=== PATIENT | female | born 1990 | race Caucasian/White ===

== ENCOUNTER → 2017-10-02 10:54 | Outpatient (CLI) | payer OTHER, SELFPAY ==
--- NOTE | 2017-10-02 10:57 | US_ITS ---
US transvaginal HISTORY: Left lower quadrant pain ITS.REASON: Abdominal Pain ORDERING PHYSICIAN: Isaac Munoz MD PATIENT AGE: 27 years COMPARISON: None FINDINGS: The uterus and right ovary have been surgically removed. The vaginal cuff has an unremarkable appearance. The left ovary measures 5.6 x 4.3 x 3.2 cm containing multiple follicles. There is a 1.5 cm somewhat irregular appearing cyst and there is a small amount of fluid adjacent to the left ovary. Blood flow is present in the left ovary. The findings may represent a ruptured ovarian cyst. There is adjacent fluid-filled bowel. IMPRESSION: 1. Prior hysterectomy and right oophorectomy. 2. Mildly prominent left ovary with an irregular cyst and adjacent fluid suggesting a ruptured ovarian cyst
== END ==
PROVIDERS: Family Provider Physician Assistant; PCP Physician Assistant; Visit Provider Obstetrics & Gynecology
DX: R10.9 Unspecified abdominal pain (principal)
CPT/HCPCS: 76830

== ENCOUNTER → 2017-10-14 14:33 | Outpatient (CLI) | payer OTHER, SELFPAY ==
[2017-10-14 14:37] LABS: Microscopic, Urine URINE MICROSCOPIC (MICROSCOPIC)
[2017-10-14 15:04] LABS: Appearance,Urine CLEAR (Clear); Bilirubin,Urine Negative (Negative); Blood, Urine Negative (Negative); Color,Urine YELLOW (Yellow); Glucose,Urine (UA) Negative (Negative); Ketones,Urine Negative (Negative); Leukocyte Esterase,Urine Negative (Negative); Nitrate,Urine Negative (Negative); Protein,Urine Negative (Negative)
[2017-10-14 15:05] LABS: Basophils # 0.1 K/mm3 (0-0.2); Basophils % 0.9 % (0.1-2.0); Eosinophils # 0.1 K/mm3 (0.0-0.4); Eosinophils % 1.6 % (0.1-12.0); Hematocrit 38.2 % (37.0-47.0); Hemoglobin 12.9 g/dL (12.2-16.2); Lymphocytes # 2.8 K/mm3 (0.7-4.5); Lymphocytes % 31.5 K/mm3 (10-50); Mean Corpuscular HGB Conc 33.7 g/dL (31.8-35.4); Mean Corpuscular Hemoglobin 29.9 pg (27.0-31.2); Mean Corpuscular Volume 88.8 fl (81-99); Mean Platelet Volume 10.5 fl (7.4-10.4); Monocytes # 0.4 K/mm3 (0.1-1.0); Monocytes % 4.5 % (1.7-9.3); Neutrophils # 5.5 K/mm3 (1.8-7.8); Neutrophils % 61.5 % (37.0-80.0); Platelet Count 251 K/mm3 (142-424); Red Cell Distribution Width 13.4 % (11.5-17.5); White Blood Count 8.9 K/mm3 (4.8-10.8)
[2017-10-14 15:15] LABS: Bacteria,Urine Trace /lpf
[2017-10-14 15:43] LABS: HCG Qualitative, Serum Negative (Negative)
[2017-10-14 16:00] LABS: Alanine Aminotransferase 33 U/L (12-78); Albumin Level 3.9 gm/dL (3.4-5.0); Albumin/Globulin Ratio 1.1 (1.1-1.8); Alkaline Phosphatase 82 U/L (46-116); Anion Gap 13.3 mEq/L (5-15); Aspartate Amino Transferase 13 U/L (15-37); Bilirubin,Total 0.2 mg/dL (0.2-1.0); Blood Urea Nitrogen 10 mg/dL (7-18); Calcium 8.6 mg/dL (8.5-10.1); Carbon Dioxide 27 mmol/L (21.0-32.0); Chloride 103 mmol/L (98-107); Creatinine,Serum 0.68 mg/dL (0.55-1.02); Estimated Glomerular Filt Rate 104 ml/min (>60); GFR (African American) 126 ML/MIN (>60); Globulin 3.5 gm/dl (1.3-3.2); Glucose 93 mg/dL (74-106); Potassium 4.3 mmoL/L (3.5-5.1); Sodium 139 mmol/L (136-145); Total Protein,Serum 7.4 gm/dL (6.4-8.2)
== END ==
PROVIDERS: PCP Physician Assistant; Visit Provider Obstetrics & Gynecology
DX: R10.2 Pelvic and perineal pain (principal); Z01.818 Encounter for other preprocedural examination
CPT/HCPCS: 36415; 80053; 81001; 84703; 85025

== ENCOUNTER 2017-10-17 06:09 | Day surgery (SDC) | payer OTHER, SELFPAY ==
[2017-10-14 15:33] VITALS: BMI 28.5
[2017-10-17] VITALS (14 sets, daily range): BP systolic 112–154; BP diastolic 29–83; PULSE 60–81; RESP 15–18; TEMP 36.4–36.6; O2SAT 97–100
--- NOTE | 2017-10-17 07:13 | P.PN_ITS ---
[facility] Anesthesia Checklist - Structural Data Admitted From: Home Planned Operative Procedure/s: pelviscopy Consent for Planned Operative Procedure(s) Verified: Yes Verified Documents: Surgical Consent - Airway Assessment C-Spine Mobility Assessed: Yes TMJ Mobility Assessed: Yes Dentition: Good Dentition - Neurological Assessment Level of Consciousness: Awake, Alert - Anesthesia Plan Anesthesia Risk discussed: Yes Anesthesia Plan: Verified ASA Class: II Anesthesia Type: General [facility] Anesthesia HX I have reviewed the patient's past medical history: Yes Medical History: Denies:: Cancer (uterine cells), Diabetes Mellitus Type 1, Diabetes Mellitus Type 2, MRSA, Seizures Other Medical History: Reports: Other (ptuitary microadenoma). Denies: Blood Transfusion Reaction Other Surgeries: Yes: , Hysterectomy-Total (LAVH, RT SO), Tubal Ligation, Other (cone Bx Cx) Amputation: No Fractures: No *Family Hx:: Cancer, Diabetes, Coronary Artery Disease
--- NOTE | 2017-10-17 08:37 | HMH.OPNOTE ---
Date of procedure: 10/17/17 Pre-op Diagnosis:: Pelvic pain Post-op diagnosis:: other (1. Pelvic.2. Extensive pelvic adhesions.) Procedure performed:: Pelviscopic left salpingo-oophorectomy and extensive lysis of adhesions Surgeon:: Isaac Munoz MD SENIOR TECH MANUFA[employer]URING ENGINEERING:: Ja Arguelles Anesthesia: GETA Estimated blood loss (mL): 20 Operative findings:: Extensive pelvic adhesions with torsion of left adnexa Operative note:: After the patient was prepped and draped in usual fashion and general anesthesia was administered, a moist sponge stick was placed in the vagina for elevation of the vaginal cuff during the laparoscopy. After appropriate regloving, the skin on either side of the umbilicus was tented up with towel clips. A small incision was made in the base of the umbilicus with a knife, and a Veress needle was inserted into the abdominal cavity. After demonstration of negative pressure, and adequate phisoperitoneum was created with carbon dioxide gas. The Veress needle was then replaced with a trocar and cannula, using the [employer] system, and the trocar placed with the laparoscope. There were extensive omental adhesions from the anterior abdominal wall to the pelvis, and covering the pelvis. The uterus and right adnexa was surgically absent. The left adnexa could initially not be visualized due to the adhesions. The upper abdomen was explored and found to be normal. The liver and spleen edges and gallbladder were visualized and felt to be normal. The appendix was not seen. Returning to the pelvis, after transillumination and under direct visualization, accessory ports were placed in the right and left lower quadrants. Using a combination of endo-Babcocks and EndoShears, the omental adhesions were taken down from the anterior abdominal wall, thus freeing up the pelvis. The extensive adhesions covering the right side of the pelvis were freed up hemostatically. On the left side, the adhesions were more extensive and, after painstaking adhesiolysis, the left adnexa was finally able to be visualized and found to be twisted due to adhesions. It was grasped with a [place] clamp, and the adhesions were dissected away. The infundibulopelvic ligament was then crossclamped and stapled with an Endo BONG stapler, thus freeing the left adnexa. There was no undue bleeding. The pelvis was inspected for any other pathology, and none was found. An Endo Catch basket was placed to the left lower quadrant port, and the specimen was placed within it and brought out through that port. The fascial peritoneum was then reduced, and the instruments removed under direct visualization. The skin incisions were infused with a dilute solution of Marcaine, as a local anesthetic, and closed with subcuticular sutures of 3-0 Vicryl. The wounds were appropriately dressed. The sponge stick was removed from the vagina. The estimated blood loss was 20 cc. The patient tolerated the procedure well, and was taken to PACU in excellent condition. She will be given Delestrogen 30 mg IM in PACU, and will be discharged today, if her vital signs are stable. Condition: stable Disposition: same day Specimens:: Left tube and ovary Complications:: None
--- NOTE | 2017-10-17 08:43 | P.OP_ITS ---
Date of procedure: 10/17/17 Pre-op Diagnosis:: Pelvic pain Post-op diagnosis:: other (1. Pelvic.2. Extensive pelvic adhesions.) Procedure performed:: Pelviscopic left salpingo-oophorectomy and extensive lysis of adhesions Surgeon:: Isaac Munoz MD PACKAGER HAND:: Ja Arguelles Anesthesia: GETA Estimated blood loss (mL): 20 Operative findings:: Extensive pelvic adhesions with torsion of left adnexa Operative note:: After the patient was prepped and draped in usual fashion and general anesthesia was administered, a moist sponge stick was placed in the vagina for elevation of the vaginal cuff during the laparoscopy. After appropriate regloving, the skin on either side of the umbilicus was tented up with towel clips. A small incision was made in the base of the umbilicus with a knife, and a Veress needle was inserted into the abdominal cavity. After demonstration of negative pressure, and adequate phisoperitoneum was created with carbon dioxide gas. The Veress needle was then replaced with a trocar and cannula, using the [employer] system, and the trocar placed with the laparoscope. There were extensive omental adhesions from the anterior abdominal wall to the pelvis, and covering the pelvis. The uterus and right adnexa was surgically absent. The left adnexa could initially not be visualized due to the adhesions. The upper abdomen was explored and found to be normal. The liver and spleen edges and gallbladder were visualized and felt to be normal. The appendix was not seen. Returning to the pelvis, after transillumination and under direct visualization, accessory ports were placed in the right and left lower quadrants. Using a combination of endo-Babcocks and EndoShears, the omental adhesions were taken down from the anterior abdominal wall, thus freeing up the pelvis. The extensive adhesions covering the right side of the pelvis were freed up hemostatically. On the left side, the adhesions were more extensive and, after painstaking adhesiolysis, the left adnexa was finally able to be visualized and found to be twisted due to adhesions. It was grasped with a Harris clamp, and the adhesions were dissected away. The infundibulopelvic ligament was then crossclamped and stapled with an Endo BONG stapler, thus freeing the left adnexa. There was no undue bleeding. The pelvis was inspected for any other pathology, and none was found. An Endo Catch basket was placed to the left lower quadrant port, and the specimen was placed within it and brought out through that port. The fascial peritoneum was then reduced, and the instruments removed under direct visualization. The skin incisions were infused with a dilute solution of Marcaine, as a local anesthetic, and closed with subcuticular sutures of 3-0 Vicryl. The wounds were appropriately dressed. The sponge stick was removed from the vagina. The estimated blood loss was 20 cc. The patient tolerated the procedure well, and was taken to PACU in excellent condition. She will be given Delestrogen 30 mg IM in PACU, and will be discharged today, if her vital signs are stable. Condition: stable Disposition: same day Specimens:: Left tube and ovary Complications:: None
--- NOTE | 2017-10-17 08:50 | P.PN_ITS ---
[facility] Anesthesia Record Part I Intake, IV Amount: 900 Estimated blood loss (mL): 25 Urine output (mL): 25 Blood Products used (#): none Blood Pressure: 134/48 SaO2: 97 Pulse Rate: 79 Respiratory Rate: 15 Temperature: 97.7 F Patient is:: Drowsy Stable to PACU at:: 08:46
--- NOTE | 2017-10-17 08:50 | HMH.ANESII ---
[facility] Anesthesia Record Part II Discharge Time: 09:16 Destination: Surgical Day Care (OP Surgery) PACU nurse assessment reviewed?: Yes Patient Condition:: Good Anesthesia Complications:: None
[2017-10-17 10:04] LABS: Hematocrit 33.6 % (37.0-47.0)
--- NOTE | 2017-10-17 15:22 | PC.NURSE ---
1000-spoke with lakeisha at Dr Aguirre office asked if pt was to have observations per order sheet. dr skinner comfirmed pt can go home. hgb-12 hct-33.6 1045-called Carla office to get okay on bloodwork results, Dr skinner okay to dc'd pt
== END 2017-10-17 11:10 | disposition home or self-care (01) ==
LOC: OR 06:10
PROVIDERS: Family Provider Physician Assistant; PCP Physician Assistant; Visit Provider Obstetrics & Gynecology
PROC: 0WJJ4ZZ Inspection of Pelvic Cavity, Percutaneous Endoscopic Approach (ICD-10-PCS; CPT 58661; principal; 2017-10-17 07:30)
DX: R10.2 Pelvic and perineal pain (principal); N83.53 Torsion of ovary, ovarian pedicle and fallopian tube; N73.6 Female pelvic peritoneal adhesions (postinfective); Z72.0 Tobacco use
CPT/HCPCS: 58661; 49329; 85014; 85018; 96372; 96374; J0131; J2405

== ENCOUNTER 2017-10-18 21:31 | Observation (INO) | payer OTHER, SELFPAY ==
[2017-10-18 21:27] VITALS: BP 139/72; PULSE 102; RESP 20; TEMP 36.8; O2SAT 100; BMI 29.6
[2017-10-18 21:55] LABS: Basophils # 0.1 K/mm3 (0-0.2); Basophils % 0.5 % (0.1-2.0); Eosinophils # 0.2 K/mm3 (0.0-0.4); Eosinophils % 1.5 % (0.1-12.0); Hemoglobin 9.4 g/dL (12.2-16.2); Lymphocytes # 4.1 K/mm3 (0.7-4.5); Lymphocytes % 33.2 K/mm3 (10-50); Mean Corpuscular HGB Conc 35.1 g/dL (31.8-35.4); Mean Corpuscular Hemoglobin 30.7 pg (27.0-31.2); Mean Corpuscular Volume 87.6 fl (81-99); Mean Platelet Volume 11.3 fl (7.4-10.4); Monocytes # 0.5 K/mm3 (0.1-1.0); Monocytes % 4.4 % (1.7-9.3); Neutrophils # 7.4 K/mm3 (1.8-7.8); Neutrophils % 60.5 % (37.0-80.0); Platelet Count 257 K/mm3 (142-424); Red Blood Count 3.06 M/mm3 (4.20-5.40); Red Cell Distribution Width 13.7 % (11.5-17.5); White Blood Count 12.3 K/mm3 (4.8-10.8)
[2017-10-18 21:57] LABS: Hematocrit 26.8 % (37.0-47.0)
--- NOTE | 2017-10-18 22:00 | HMH.EDGENADL ---
ED Disposition Clinical Impression: Postoperative abdominal pain, Hemoperitoneum, Acute urinary retention Disposition: Still a Patient Condition on Discharge: Fair Instructions: DI for Acute Abdomen Referrals: Amy Matute PA [Primary Care Provider] - - Critical Care Critical Care Time: No Attestation: On 10/18/17, the high probability of a clinically significant, sudden or life threatening deterioration of the following system(s) required my full and direct attention, intervention and personal management. The time I documented below is in addition to time spent performing reported procedures but includes the following listed in this critical care notation. Medical Decision Making Vital Signs: 10/18/17 21:27 Temperature 98.3 F Temperature Source Oral Pulse Rate [Right Brachial] 102 H Respiratory Rate 20 Blood Pressure [Right Arm] 139/72 Blood Pressure Mean [Right Arm] 94 Blood Pressure Source [Right Arm] Automatic Cuff Blood Pressure Position [Right Arm] Supine 02 Sat by Pulse Oximetry 100 Oxygen Delivery Method Nasal Cannula Oxygen Flow Rate (LPM) 2 - Lab Data Lab Results 10/18/17 21:47: WBC 12.3 H, RBC 3.06 L, Hgb 9.4 L, Hct 26.8 L, MCV 87.6, MCH 30.7, MCHC 35.1, RDW 13.7, Plt Count 257, MPV 11.3 H, Neut % (Auto) 60.5, Lymph % (Auto) 33.2, [place]ook[place] % (Auto) 4.4, Eos % (Auto) 1.5, Baso % (Auto) 0.5, Neut # (Auto) 7.4, Lymph # (Auto) 4.1, [place]ook[place] # (Auto) 0.5, Eos # (Auto) 0.2, Baso # (Auto) 0.1 10/18/17 21:47: Sodium 138, Potassium 3.9, Chloride 105, Carbon Dioxide 22, Anion Gap 14.9, BUN 10, Creatinine 0.69, Estimated Creat Clear 166, Estimated GFR 102, Est GFR ( Amer) 123, Glucose 86, Calcium 7.8 L, Total Bilirubin 0.4, AST 19, ALT 29, Alkaline Phosphatase 68, Total Protein 6.8, Albumin 3.3 L, Globulin 3.5 H, Albumin/Globulin Ratio 0.9 L 10/18/17 22:35: Blood Type O Positive, Antibody Screen Negative, Crossmatch (AHG) See Detail 10/18/17 23:41: Urine Color Yellow, Urine Appearance Clear, Urine pH 7.0, Ur Specific [place] 1.010, Urine Protein Negative, Urine Glucose (UA) Negative, Urine Ketones Negative, Urine Blood Negative, Urine Nitrate Negative, Urine Bilirubin Negative, Urine Urobilinogen 0.2, Ur Leukocyte Esterase Negative, Urine WBC Occasional, Ur Squamous Epith Cells Occasional Result diagrams: 10/18/17 21:47 10/18/17 21:47 Orders (Tests/Meds): ED MEDICATIONS Generic Name Dose Route Start Last Admin Trade Name Freq PRN Reason Stop Dose Admin Sodium Chloride 250 mls @ 25 mls/hr 10/18/17 22:15 Sod Chlor 0.9% 250ml Bag IV 10/19/17 22:14 .Q10H PERFECTO Discontinued Medications Generic Name Dose Route Start Last Admin Trade Name Freq PRN Reason Stop Dose Admin Iopamidol 70 ml 10/18/17 23:45 10/18/17 23:47 [id number]; 75ml Vial IV 10/18/17 23:46 70 ml ONCE ONE Administration Morphine Sulfate 4 mg 10/18/17 22:11 10/18/17 22:17 Morphine 4mg/Ml Syringe IV 10/18/17 22:12 4 mg ONCE ONE Administration Morphine Sulfate 4 mg 10/18/17 23:36 10/18/17 23:45 Morphine 4mg/Ml Syringe IV 10/18/17 23:37 4 mg ONCE ONE Administration Ondansetron HCl 4 mg 10/18/17 22:11 10/18/17 22:17 Zofran 4mg/2ml Vial IV 10/18/17 22:12 4 mg ONCE ONE Administration Sodium Chloride 1,000 ml 10/18/17 22:18 10/18/17 23:45 Sod Chlor 0.9% 1000ml Bag IV 10/18/17 22:19 1,000 ml BOLUS ONE Administration Sodium Chloride 10 ml 10/18/17 23:45 10/18/17 23:47 Rad-Saline Flush 10ml Syringe IV 10/18/17 23:46 10 ml ONCE ONE Administration ORDERS Category Date Time Status PRBC [Red Blood Cells] Stat K 10/18/17 22:35 Results Type and Screen Stat [facility] 10/18/17 22:[address] abdomen pelvis w con Stat Cat Scan 10/18/17 22:17 Taken Hemoglobin and Hematocrit Routine Lab 10/19/17 02:17 Ordered PT/PTT Stat Lab 10/18/17 22:19 Ordered - CT Data CT Scan: Abdomen, Pelvis Time Received: 23:[address] Reviewed: Yes: I have viewe
[2017-10-18 22:06] LABS: Alanine Aminotransferase 29 U/L (12-78); Albumin Level 3.3 gm/dL (3.4-5.0); Albumin/Globulin Ratio 0.9 (1.1-1.8); Alkaline Phosphatase 68 U/L (46-116); Anion Gap 14.9 mEq/L (5-15); Aspartate Amino Transferase 19 U/L (15-37); Bilirubin,Total 0.4 mg/dL (0.2-1.0); Blood Urea Nitrogen 10 mg/dL (7-18); Calcium 7.8 mg/dL (8.5-10.1); Carbon Dioxide 22 mmol/L (21.0-32.0); Chloride 105 mmol/L (98-107); Creatinine Clearance Estimated 166 mL/min (0-300); Creatinine,Serum 0.69 mg/dL (0.55-1.02); Estimated Glomerular Filt Rate 102 ml/min (>60); GFR (African American) 123 ML/MIN (>60); Globulin 3.5 gm/dl (1.3-3.2); Glucose 86 mg/dL (74-106); Potassium 3.9 mmoL/L (3.5-5.1); Sodium 138 mmol/L (136-145); Total Protein,Serum 6.8 gm/dL (6.4-8.2)
--- NOTE | 2017-10-18 22:17 | CT_ITS ---
CT abdomen pelvis w con COMPARISON: CT scan abdomen pelvis 06/05/2017 HISTORY: 2 days post oophorectomy with abdominal distention and pain TECHNIQUE: Multiple axial scans obtained from hemidiaphragms to the pelvic floor and were performed with IV contrast only. Sagittal coronal reformats were evaluated as well. FINDINGS: The lower lung centeno are clear except for minimal atelectasis at the right posterior gutter. There is no pleural fluid. There is a tiny amount of air beneath right hemidiaphragm and superior to the right lobe of the liver consistent with recent laparoscopic surgery. Liver spleen stomach pancreas and gallbladder appear grossly normal. The adrenal glands are normal. The kidneys are normal size and show symmetrical function both appearing normal. There are postsurgical changes near the umbilicus likely due to the laparoscopic port entry. Small bowel is grossly normal. I do not definitely identify the appendix but there are no definite findings to suggest appendicitis. There are small amount of somewhat high density ascitic fluid in the right posterior gutter near the cecum. There is a moderate amount of fluid within the lower pelvis of higher CT number than urinary bladder consistent with hemoperitoneum. There may be suture material near the left adnexa and possibly right adnexa. Urinary bladder is well distended with urine.. IMPRESSION: Postsurgical changes about the umbilicus, tiny amount of free air beneath right hemidiaphragm and moderate amount of fluid within the pelvis in this patient post unilateral and/or possibly bilateral oophorectomy with fluid in the pelvis having CT number consistent with blood products and likely due to hemoperitoneum. I basically agree with the [facility] report.
--- NOTE | 2017-10-18 22:26 | PC.NURSE ---
PT TO CT
--- NOTE | 2017-10-18 22:28 | PC.NURSE ---
IV LINE PER EMS
[2017-10-18 23:51] LABS: Microscopic, Urine URINE MICROSCOPIC (MICROSCOPIC)
[2017-10-18 23:53] LABS: Appearance,Urine CLEAR (Clear); Bilirubin,Urine Negative (Negative); Blood, Urine Negative (Negative); Color,Urine YELLOW (Yellow); Glucose,Urine (UA) Negative (Negative); Ketones,Urine Negative (Negative); Leukocyte Esterase,Urine Negative (Negative); Nitrate,Urine Negative (Negative); Protein,Urine Negative (Negative); Urobilinogen,Urine 0.2 EU/dl (0.2)
[2017-10-18 23:56] LABS: Squamous Epithelial Cell,Urine Occasional #/hpf (0-5); WBC,Urine Occasional #/hpf (0-3)
[2017-10-19] VITALS (22 sets, daily range): BP systolic 86–151; BP diastolic 46–94; PULSE 63–93; RESP 16–18; TEMP 36.3–37; O2SAT 96–100; BMI 29.6
[2017-10-19 01:09] LABS: Activated Partial Thrombo Time 26.1 seconds (23.6-34.0); INR 0.94 (0.9-1.1); Prothrombin Time 10.2 seconds (9.4-11.8)
--- NOTE | 2017-10-19 01:20 | PC.NURSE ---
report recieved from Jaylene RN, pt arrived to floor via stretcher. pt remains stable
--- NOTE | 2017-10-19 05:22 | PC.NURSE ---
pt remains stable at this time, resting comfortable without discomfort. VSS, no needs voiced
[2017-10-19 06:45] LABS: Basophils % 0.4 % (0.1-2.0); Eosinophils # 0.1 K/mm3 (0.0-0.4); Eosinophils % 1.4 % (0.1-12.0); Lymphocytes # 3.4 K/mm3 (0.7-4.5); Lymphocytes % 34.6 K/mm3 (10-50); Mean Corpuscular HGB Conc 33.9 g/dL (31.8-35.4); Mean Corpuscular Hemoglobin 30.7 pg (27.0-31.2); Mean Corpuscular Volume 90.3 fl (81-99); Mean Platelet Volume 10.3 fl (7.4-10.4); Monocytes # 0.5 K/mm3 (0.1-1.0); Monocytes % 5.1 % (1.7-9.3); Neutrophils # 5.7 K/mm3 (1.8-7.8); Neutrophils % 58.5 % (37.0-80.0); Platelet Count 185 K/mm3 (142-424); Red Blood Count 2.59 M/mm3 (4.20-5.40); Red Cell Distribution Width 13.5 % (11.5-17.5); White Blood Count 9.8 K/mm3 (4.8-10.8)
[2017-10-19 06:58] LABS: Hematocrit 23.4 % (37.0-47.0); Hemoglobin 7.9 g/dL (12.2-16.2)
--- NOTE | 2017-10-19 07:01 | PC.NURSE ---
reported critical lab to Dr. Zamudio, report given on current pt status, new order for ducolax suppository
--- NOTE | 2017-10-19 07:05 | PC.NURSE ---
RECEIVED REPORT FROM Swati HERRERA RN
--- NOTE | 2017-10-19 07:38 | PC.NURSE ---
PT HAS 3 LAP SITES WITH SUTURES INTACT. ALL 3 INCISIONS APPROXIMATED. SOME MILD BRUSING NOTED TO LAP SITES.
--- NOTE | 2017-10-19 07:38 | PC.NURSE ---
PT REPORTS NOT HAVING A BM SINCE PRIOR TO SX. PT DECLINES PASSING ANY GAS. WILL CONTINUE TO MONITOR.
--- NOTE | 2017-10-19 08:00 | PC.NURSE ---
DR MUNSON CALLED REPORT GIVEN. PT WANTING SOMETHING FOR ABD PAIN AND HEADACHE. PT REPORTING PAIN 7 OUT OF 10. PT ABD MODERATELY DISTENDED. VITALS 99/56 HR 66 O2 99% REP 16 TEMP 97.9 ORAL. ORDERS RECEIVED TO OBTAIN ORTHOSTATIC BP AND MD WOULD BE OVER TO EVALUATE PT. ORDERS R/V.
--- NOTE | 2017-10-19 08:28 | PC.NURSE ---
DR MUNSON AT BEDSIDE. REPORTED ON ORTHOSTATIC BP SITTING 133/94 HR 70, LAYING 124/56 HR 83, STANDING 151/73 HR 93. PT STILL REQUESTING SOMETHIGN FOR PAIN. RATING PAIN A 7. ABD AND HEAD. ORDERS RECEIVED XRAY KUB ACUTE ABD SERIES FOR ABD PAIN. PT MAY HAVE ICE CHIPS. NOTIFIED THAT PT HAS MORPHINE 4MG ORDERED. ORDERS RECEIVED TO GIVE MORPHINE 2MG IV. REPEAT CBC AT 10:00AM THIS MORNING. R/V
--- NOTE | 2017-10-19 08:48 | HMH.HP ---
*Admission Date: 10/19/17 *Chief complaint: Abdominal pain, postoperative *History of present illness: Patient is a 27yo female who is s/p laparoscopic salpingoophorectomy on . She was discharged home same day with pain medications. She experienced abdominal pain that was not controlled by the pain medications she was sent home with. She then exchanged her prescription on Saturday for Dilaudid po. On Saturday she took the Dilaudid x 2, hours apart. Per her partner, after taking the second tablet, she was noted to be short of breath, complaining of continued pain, and very drowsy. He then called 911 and she was transported to the ER via ambulance. In the ER, her Hct was noted to have decreased since her discharge and a CT was performed. Her CT showed moderate amount of fluid in the pelvis, a significant stool burden and air. Patient was admitted for observation, pain control, serial abdominal exams and serial Hct's. She was given IVH and kept NPO overnight. Her repeat Hct this am had decreased slightly to 23. This am, she complains again of pain. She has not passed gas since yesterday. She has not had a bowel movement since before the surgery. She is requesting to eat and go home. In May Patient had a hysterectomy with unilateral salpingoophorectomy that was complicated by intraabdominal bleeding that required a second emergency surgery. [facility] History I have reviewed the patient's past medical history: Yes Medical History: Denies:: Seizures Other Medical History: Reports: Other (ptuitary microadenoma). Denies: Blood Transfusion Reaction Other Surgeries: Yes: , Hysterectomy-Total (LAVH, RT SO), Tubal Ligation, Other (cone Bx Cx) Amputation: No Fractures: No - *Social History Educational Level: Completed High School Smoking Status: Current every day smoker Tobacco Type: cigarettes # Packs/Day (cigarettes): 2 Alcohol Intake: never Substance Use Type: denies use Occupational Status: employed Housing: house Household Members: spouse, children - Psychiatric History Expresses thoughts of harming self/others: None Suicide Plan Description: No Plan *Family Hx:: No significant family history, Cancer, Coronary Artery Disease, Diabetes [employer] history: Non-contributory Para: 3 Review of Systems - Review of Systems Review of systems:: other, pertinent systems reviewed and negative unless documented below Meds Home Medications Medication Instructions Recorded Confirmed Type Hydromorphone HCl [Hydromorphone 4 mg PO NEEDED PRN 10/18/17 10/18/17 History 4mg Tab] Allergies Allergy/AdvReac Type Severity Reaction Status Date / Time No Known Allergies Allergy Unverified 10/14/17 13:58 Exam Vital signs and Labs for Last 24 Hours: Temp Pulse Resp BP Pulse Ox 98.6 F 79 18 125/79 100 10/19/17 01:53 10/19/17 01:53 10/19/17 01:53 10/19/17 01:53 10/19/17 01:51 Laboratory Results - last 24 hr 10/19/17 06:03: WBC 9.8, RBC 2.59 L, Hgb 7.9 L*, Hct 23.4 L*, MCV 90.3, MCH 30.7, MCHC 33.9, RDW 13.5, Plt Count 185 D, MPV 10.3, Neut % (Auto) 58.5, Lymph % (Auto) 34.6, [place] % (Auto) 5.1, Eos % (Auto) 1.4, Baso % (Auto) 0.4, Neut # (Auto) 5.7, Lymph # (Auto) 3.4, [place] # (Auto) 0.5, Eos # (Auto) 0.1, Baso # (Auto) 0.0 I & O for Last 24 hours: Intake & Output 10/16/17 10/17/17 10/18/17 10/19/17 23:59 23:59 23:59 23:59 Output Total 100 / 900 Balance -100 / -600 - Constitutional mild distress - *Routine Respiratory Exam Present: CTA bilaterally Comments: CTAB - *Routine Abdominal Exam Present: normoactive bowel sounds, distended Comments: mildly tender, able to distract, no rebound, no guarding H&P: Result - Labs Labs: Short CBC 10/19/17 Range/Units 06:03 WBC 9.8 (4.8-10.8) K/mm3 Hgb 7.9 L* (12.2-16.2) g/dL Hct 23.4 L* (37.0-47.0) % Plt Count 185 D (142-424) K/mm3 Assessment and Plan (1) Hemoperitoneum Start date:
--- NOTE | 2017-10-19 09:08 | PC.NURSE ---
PT HAD A BISACODYL SUPPOSITORY AT 8:42. PT REPORTS SHE THINKS HER BOWELS NEED TO MOVE. PT ASSISTED TO BATHROOM, PT CONSTIPATED. PT WAS ABLE TO HAVE SMALL BOWEL MOVEMENT, BM WAS FORMED LOOKING AND PEA SIZED.
--- NOTE | 2017-10-19 09:08 | XR_ITS ---
XR KUB COMPARISON: CT scan abdomen pelvis 10/18/2017 HISTORY: Postop abdominal pain TECHNIQUE: KUB FINDINGS: There is large amount stool in ascending transverse and proximal descending colon. There are a few mildly dilated loops of small bowel lower midabdomen. Is a White catheter seen in the collapsed urinary bladder. There are faint surgical kait on both sides of the lower pelvis. IMPRESSION: Findings of mild to moderate constipation, no obvious remaining free air seen in the abdomen at this time.
--- NOTE | 2017-10-19 09:17 | P.HP_ITS ---
*Admission Date: 10/19/17 *Chief complaint: Abdominal pain, postoperative *History of present illness: Patient is a 27yo female who is s/p laparoscopic salpingoophorectomy on . She was discharged home same day with pain medications. She experienced abdominal pain that was not controlled by the pain medications she was sent home with. She then exchanged her prescription on Saturday for Dilaudid po. On Saturday she took the Dilaudid x 2, hours apart. Per her partner, after taking the second tablet, she was noted to be short of breath, complaining of continued pain, and very drowsy. He then called 911 and she was transported to the ER via ambulance. In the ER, her Hct was noted to have decreased since her discharge and a CT was performed. Her CT showed moderate amount of fluid in the pelvis, a significant stool burden and air. Patient was admitted for observation, pain control, serial abdominal exams and serial Hct's. She was given IVH and kept NPO overnight. Her repeat Hct this am had decreased slightly to 23. This am, she complains again of pain. She has not passed gas since yesterday. She has not had a bowel movement since before the surgery. She is requesting to eat and go home. In May Patient had a hysterectomy with unilateral salpingoophorectomy that was complicated by intraabdominal bleeding that required a second emergency surgery. [facility] History I have reviewed the patient's past medical history: Yes Medical History: Denies:: Seizures Other Medical History: Reports: Other (ptuitary microadenoma). Denies: Blood Transfusion Reaction Other Surgeries: Yes: , Hysterectomy-Total (LAVH, RT SO), Tubal Ligation, Other (cone Bx Cx) Amputation: No Fractures: No - *Social History Educational Level: Completed High School Smoking Status: Current every day smoker Tobacco Type: cigarettes # Packs/Day (cigarettes): 2 Alcohol Intake: never Substance Use Type: denies use Occupational Status: employed Housing: house Household Members: spouse, children - Psychiatric History Expresses thoughts of harming self/others: None Suicide Plan Description: No Plan *Family Hx:: No significant family history, Cancer, Coronary Artery Disease, Diabetes 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 Para: 3 Review of Systems - Review of Systems Review of systems:: other, pertinent systems reviewed and negative unless documented below Meds Home Medications Medication Instructions Recorded Confirmed Type Hydromorphone HCl [Hydromorphone 4 mg PO NEEDED PRN 10/18/17 10/18/17 History 4mg Tab] Allergies Allergy/AdvReac Type Severity Reaction Status Date / Time No Known Allergies Allergy Unverified 10/14/17 13:58 Exam Vital signs and Labs for Last 24 Hours: Temp Pulse Resp BP Pulse Ox 98.6 F 79 18 125/79 100 10/19/17 01:53 10/19/17 01:53 10/19/17 01:53 10/19/17 01:53 10/19/17 01:51 Laboratory Results - last 24 hr 10/19/17 06:03: WBC 9.8, RBC 2.59 L, Hgb 7.9 L*, Hct 23.4 L*, MCV 90.3, MCH 30.7 , MCHC 33.9, RDW 13.5, Plt Count 185 D, MPV 10.3, Neut % (Auto) 58.5, Lymph % ( Auto) 34.6, [place] % (Auto) 5.1, Eos % (Auto) 1.4, Baso % (Auto) 0.4, Neut # (Auto ) 5.7, Lymph # (Auto) 3.4, [place] # (Auto) 0.5, Eos # (Auto) 0.1, Baso # (Auto) 0.0 I & O for Last 24 hours: Intake & Output 10/16/17 10/17/17 10/18/17 10/19/17 23:59 23:59 23:59 23:59 Output Total 100 / 900 Balance -100 / -600
--- NOTE | 2017-10-19 09:30 | PC.NURSE ---
Addendum entered by Ellie Almeida RN 10/19/17 14:56: TIME WAS AT 09:08 Original Note: PT HAD A SMALL BM. BM FORMED AND HARD, SMALL PEA SIZED
--- NOTE | 2017-10-19 09:35 | PC.NURSE ---
RADIOLOGY AT BEDSIDE TO TAKE PT FOR X-RAY. REPORT GIVEN TO RADIOLOGY.
--- NOTE | 2017-10-19 09:52 | PC.NURSE ---
PT RETURNED FROM RADIOLOGY AT THIS TIME. PT REPORTING ABD PAIN WHEN SHE HAD TO LAY FLAT FOR X-RAY. PT ASSISTED BACK TO BED. PT RATED PAIN IN ABD A 4. INSTRUCTED PT THAT IT WASN'T TIME FOR PAIN MEDICATION AT THIS TIME. I WOULD GIVE HER A FEW MINUTES FOR HER TO RELAX IN BED AND IF PAIN WAS NOT ANY BETTER WOULD CALL MD BACK. PT V/U.
--- NOTE | 2017-10-19 10:19 | PC.NURSE ---
DR MUNSON CALLED XRAY REPORT FINDINGS AND IMPRESSION REPORTED TO MD. NO NEW ORDERS RECEIVED AT THIS TIME.
--- NOTE | 2017-10-19 10:20 | PC.NURSE ---
LAB AT BEDSIDE FOR SCHEDULED LABS.
[2017-10-19 10:33] LABS: Basophils % 0.5 % (0.1-2.0); Eosinophils # 0.1 K/mm3 (0.0-0.4); Eosinophils % 1.9 % (0.1-12.0); Lymphocytes # 2.7 K/mm3 (0.7-4.5); Lymphocytes % 37.5 K/mm3 (10-50); Mean Corpuscular HGB Conc 33.7 g/dL (31.8-35.4); Mean Corpuscular Hemoglobin 30.4 pg (27.0-31.2); Mean Corpuscular Volume 90.2 fl (81-99); Mean Platelet Volume 11.5 fl (7.4-10.4); Monocytes # 0.4 K/mm3 (0.1-1.0); Monocytes % 5.8 % (1.7-9.3); Neutrophils # 3.9 K/mm3 (1.8-7.8); Neutrophils % 54.2 % (37.0-80.0); Platelet Count 170 K/mm3 (142-424); Red Blood Count 2.64 M/mm3 (4.20-5.40); Red Cell Distribution Width 13.5 % (11.5-17.5); White Blood Count 7.3 K/mm3 (4.8-10.8)
--- NOTE | 2017-10-19 10:35 | PC.NURSE ---
PT RESTING QUIETLY IN BED. RESP EASY AND UNLABORED. CALL LIGHT IN REACH.
[2017-10-19 10:38] LABS: Hematocrit 23.8 % (37.0-47.0)
--- NOTE | 2017-10-19 10:38 | PC.NURSE ---
LAB CALLED WITH CRITICAL H/H 8.0/23.8. WILL NOTIFY
--- NOTE | 2017-10-19 10:41 | PC.NURSE ---
DR MUNSON CALLED CRITICAL H/H REPORTED 8.0/23.8. ORDERS RECEIVED TO (1) REMOVE BROTHERS CATHETER. (2) HAVE PT WALK LAPS IN HALLWAY. (3) PT MAY HAVE CLEAR FLUIDS. HAVE PT DRINK WARM FLUIDS. (4) GIVE 1/3 DOSE OF MAG CITRATE PO X1. HOLD OFF ON PAIN MEDICATIONS AT THIS TIME. R/V
--- NOTE | 2017-10-19 11:05 | PC.NURSE ---
PT SITTING UP IN BED, BROTHERS CATHETER REMOVED. PT TOLERATED WELL. PT ASSISTED TO BSC WITHOUT DIFFICULTY.
--- NOTE | 2017-10-19 11:26 | PC.NURSE ---
DR MUNSON IN DEPARTMENT. REPORT GIVEN PT HAS HAD A HEADACHE OFF AND ON. CAN WE GIVE PT TYLENOL IF NEEDED. ORDERS RECEIVED FOR TYLENOL 1000MG PO Q6 HOURS PRN HEADACHE. R/V
--- NOTE | 2017-10-19 11:30 | PC.NURSE ---
PT RESTING IN BED WATCHING TV. NO NEEDS VOICED. CALL LIGHT IN REACH,.
--- NOTE | 2017-10-19 12:30 | PC.NURSE ---
ENCOURAGED PT TO TAKE A WALK AROUND OB UNIT. RN WALKED BESIDE PT. PT TOLERATED WELL. PT REPORTS HAVING A HEADACHE AND REQUESTING TYLENOL. SEE MAR FOR MEDICATION DOCUMENTATION. NO OTHER NEEDS VOICED.
--- NOTE | 2017-10-19 13:15 | HMH.PHAVTE ---
[facility] Pharmacy VTE Monitoring - Patient Demographics Admission date: 10/19/17 Report Date: 10/19/17 Time: 13:15 Allergies/Adverse Reactions: Patient Allergies No Known Allergies Allergy (Unverified 10/14/17 13:58) Height: 1.7 m Weight: 85.729 kg Patient Problems: Current Active Problems Postoperative abdominal pain (Acute) Hemoperitoneum (Acute) Acute urinary retention (Acute) - VTE Risk Labs: VTE Related Lab Results Hgb 8.0 g/dL (12.2-16.2) L 10/19/17 10:25 Hct 23.8 % (37.0-47.0) L* 10/19/17 10:25 Plt Count 170 K/mm3 (142-424) 10/19/17 10:25 PT 10.2 seconds (9.4-11.8) 10/18/17 21:47 INR 0.94 (0.9-1.1) 10/18/17 21:47 APTT 26.1 seconds (23.6-34.0) 10/18/17 21:47 BUN 10 mg/dL (7-18) 10/18/17 21:47 Creatinine 0.69 mg/dL (0.55-1.02) 10/18/17 21:47 Estimated Creat Clear 166 mL/min (0-300) 10/18/17 21:47 - Prophylaxis VTE Prophylaxis Ordered?: Yes Types of VTE Prophylaxis: TEDS Knee High Location of Applied Device: Bilateral Lower Extremeties - VTE Diagnosis Confirmed Treatment or plan recommended: Continue Current Treatment
--- NOTE | 2017-10-19 13:19 | PC.NURSE ---
PT SLEEPING, RESP EASY AND UNLABORED. CALL LIGHT IN REACH.
--- NOTE | 2017-10-19 14:00 | PC.NURSE ---
PT HAS HAD 3 SCANT BOWEL MOVEMENTS SINCE 12PM. ALL BOWEL MOVEMENTS MUCCUS LOOKING
--- NOTE | 2017-10-19 14:20 | PC.NURSE ---
PT WALKED A LAP AROUND OB UNIT WITH RN. PT TOLERATED WELL. PT ASSISTED BACK TO BED. PT DENIES ANY HEADACHE OR PAIN AT THIS TIME. PT REQUESTING TV REMOTE AND CUP OF COFFEE. CALL LIGHT IN REACH. NO OTHER NEEDS VOICED.
--- NOTE | 2017-10-19 15:28 | PC.NURSE ---
PT SLEEPING, RESP EASY AND UNLABORED. CALL LIGHT IN REACH. WILL CONTINUE TO MONITOR.
--- NOTE | 2017-10-19 16:45 | PC.NURSE ---
PT SITTING UP IN BED AT THIS TIME. PT LUNG SOUNDS CLEAR. RESP EASY AND UNLABORED. PT BOWEL SOUNDS NORMAL IN ALL 4 QUADS. PT VOIDING WITHOUT DIFFICULTY. PT HAS HAD 4 SCANT BM ALL MUCUS LOOKING. PT ABD STILL MODERATELY DISTENDED. PT HAS 3 ABD LAP SITES. UMBILICUS LAP SITE DRAINING A SMALL AMOUNT OF BLOOD. PT REPORTS HEADACHE RATING PAIN 7. PT STATES ABD NOT HURTING AT THIS TIME. PT HAS ARTIE CALOS HOSE INPLACE. PT HAS WALKED A COUPLE OF LAPS IN HALLWAY WITH NURSE. PT REFUSED TO WALK AROUNDS UNIT OR SIT UP IN A CHAIR AT THIS TIME. NO EDEMA NOTED. PT DENIES ANY CHEST PAIN. CALL LIGHT IN REACH. WILL UPDATE MD ON PT'S STATUS AND ADDRESS HEADACHE. NO OTHER NEEDS VOICED.
--- NOTE | 2017-10-19 17:04 | PC.NURSE ---
DR MUNSON CALLED. UPDATED ON PT STATUS. PT HASA BEEN VOIDING. PT VOIDED 200ML AT THIS TIME. PT HAS HAD 4 SCANT BOWEL MOVEMENTS ALL MUCUS LOOKING. PT REPORTS HAVING A HEADACHE PAIN 7 OUT OF 10. PT TYLENOL IS NOT DUE UNTIL 1830. PT HAS A SMALL AMOUNT (QUARTER SIZE) OF BLOODY DRAINAGE NOTED TO UMBILICUS SITE. WHAT WOULD YOU LIKE FOR ME TO CLEAN SITES WITH. ORDERS RECEIVED TO GIVE TYLENOL 1000MG PO AT 1730 ONE TIME DOSE. MAY CLEAN LAP SITES WITH ALCOHOL WIPES AND APPLY A DRESSING IF NEEDED. R/V
--- NOTE | 2017-10-19 17:34 | PC.NURSE ---
DR MUNSON IN DEPARTMENT. ORDERS RECEIVED TO GIVE PT A SENNA 8.6MG PO TABLET ONE TIME DOSE NOW, MIRALAX 1 PACK PO NOW THEN REPEAT AT 9AM. R/V
--- NOTE | 2017-10-19 17:45 | PC.NURSE ---
PT RESTING IN BED, TYLENOL GIVEN PER MAR FOR HEADACHE. WOUND CARE PROVIDED. ALL 3 LAP SITES CLEANED WITH ALCOHOL WIPES. BLOODY DRAINAGE NOTED TO UMBILICUS SITE. TELFA AND TEGADERM DRESSING APPLIED TO UMBILICUS SITE. NO DRAINAGE NOTED TO RIGHT AND LEFT LAP SITES. SMALL. NO OTHER NEEDS VOICED. CALL LIGHT IN REACH. PT TOLERATED WELL.
--- NOTE | 2017-10-19 18:17 | PC.NURSE ---
PT HAS A SCANT BOWEL MOVEMENT. MUCUS LOOKING. SENNA AND MIRALAX GIVEN PER OCT.
--- NOTE | 2017-10-19 19:15 | PC.NURSE ---
PT RESTING IN BED. COFFEE TAKEN TO PT. NO OTHER NEEDS OR CONCERNS VOICED. CALL LIGHT IN REACH.
--- NOTE | 2017-10-19 19:26 | PC.NURSE ---
REPORT GIVEN TO ANUP MOSCOSO RN
--- NOTE | 2017-10-19 19:30 | PC.NURSE ---
REPORT RECIEVED FROM JULIANA ALBERTO
--- NOTE | 2017-10-19 20:20 | PC.NURSE ---
DULCOLAX SUPP INSERTED RECTALLY.PT TOLERATED WELL.IV FLUIDS RESTARTED AFTER PT SHOWERED.CALOS HOSES REAPPLIED
--- NOTE | 2017-10-19 20:30 | PC.NURSE ---
PT AMBULATED IN [place],SO SHE COULD GET SOME CRACKERS. HAD PT ON A CLEAR LIQ DIET AND TOLD HER SHE COULD HAVE SOME CRACKERS IF SHE GOT UP AND WALKED TO GET HER BOWELS MOVING.
--- NOTE | 2017-10-20 05:30 | PC.NURSE ---
PT HAS BEEN SLEEPING.EASILY AROUSED.LUNGS CLEAR,ABD.TENDER AND DISTENDED.NO NEW DRAINAGE TO UMBILICAL DRESSING.PT HAS HAD 3-4 SMALL BOWEL MOVEMENTS WITH PASSING GAS.VOIDED A TOTAL OF 625ML YELLOW URINE.IV PATENT IN LAC WITH NS AT 125ML.
--- NOTE | 2017-10-20 07:15 | PC.NURSE ---
RECEIVED REPORT FROM ANUP MOSCOSO RN
--- NOTE | 2017-10-20 07:24 | PC.NURSE ---
PT SLEEPING, REPS EASY AND UNLABORED. S.O. REMAINS AT BEDSIDE. IV PATENT. CALL LIGHT IN REACH.
[2017-10-20 08:45] VITALS: BP 91/57; PULSE 74; RESP 16; TEMP 36.5; O2SAT 97
--- NOTE | 2017-10-20 08:45 | PC.NURSE ---
PT HAS 3 ABD LAP SITES. NO DRAINAGE NOTED TO LEFT AND RIGHT SITES. OLD SERO SANG DRAINAGE NOTED TO UMBILICUS SITE. SMALL AMOUNT OF BRUISING NOTED TO LAP SITES.
--- NOTE | 2017-10-20 08:55 | PC.NURSE ---
DR MUNSON AT BEDSIDE FOR MORNING ROUNDS REPORT GIVEN. PT URINATING W/O DIFFICULTY. PT HAS HAD A SMALL LOOSE BM THIS MORNING. VITALS REPORTED. ORDERS RECEIVED TO D/C IV, SOFT DIET, GIVE MIRALAX ORDERED. PLANS TO D/C PT HOME. R/V
--- NOTE | 2017-10-20 09:16 | PC.NURSE ---
PT SITTING UP IN BED, DENIES ANY PAIN, MIRALAX GIVEN PER MAR. DIETARY CALLED FOR BREAKFAST TRAY. NO NEEDS OR CONCERNS VOICED. CALL LIGHT IN REACH. S.O. REMAINS AT BEDSIDE.
--- NOTE | 2017-10-20 09:34 | HMH.ACPN2 ---
Internal Medicine - PN: Subj *Date: 10/20/17 *Time: 09:34 Interval history: Pt feeling much better this am. No abdominal pain. No headache. Hungry. Has voided and had multiple small bowel movements overnight. Exam Vital signs and Labs for Last 24 Hours: Temp Pulse Resp BP Pulse Ox 97.6 F 64 16 96/59 96 10/19/17 23:30 10/19/17 23:30 10/19/17 23:30 10/19/17 23:30 10/19/17 23:30 Laboratory Results - last 24 hr 10/19/17 10:25: WBC 7.3 D, RBC 2.64 L, Hgb 8.0 L, Hct 23.8 L*, MCV 90.2, MCH 30.4, MCHC 33.7, RDW 13.5, Plt Count 170, MPV 11.5 H, Neut % (Auto) 54.2, Lymph % (Auto) 37.5, [place] % (Auto) 5.8, Eos % (Auto) 1.9, Baso % (Auto) 0.5, Neut # (Auto) 3.9, Lymph # (Auto) 2.7, [place] # (Auto) 0.4, Eos # (Auto) 0.1, Baso # (Auto) 0.0 I & O for Last 24 hours: Intake & Output 10/17/17 10/18/17 10/19/17 10/20/17 23:59 23:59 23:59 23:59 Intake Total 2946 / 3246 800 / 800 Output Total 1175 / 1975 Balance 1771 / 1271 800 / 800 Weight 85.729 kg - *Routine Abdominal Exam Present: soft, normoactive bowel sounds. Absent: tenderness, distended, rebound, guarding Assessment and Plan (1) Hemoperitoneum Start date: 10/18/17 Problem details: mild to moderate amount of fluid in pelvis consistent with blood Current visit: Yes Status: Resolved Category: Medical Code(s): K66.1 - Hemoperitoneum (2) Postoperative abdominal pain Start date: 10/18/17 Problem details: exam more concerning for ileus, gas distension Current visit: Yes Status: Resolved Category: Medical Code(s): R10.9 - Unspecified abdominal pain; G89.18 - Other acute postprocedural pain 27yo s/p laparoscopic unilateral salpingoophorectomy on admitted for pain control and abdominal distension. CT with mild to moderate blood in pelvis and large stool burden. Patient with no BM x days, s/p multiple narcotic meds to control worsening abdominal pain. Now, s/o 24hrs plus without any narcotic pain meds, a bowel regimen, and ambulation. Much improved. No further need for pain control. Passage of flatus and stool. Abdomen soft and nontender. Stable for discharge home to followup with Dr. Munoz.
--- NOTE | 2017-10-20 09:40 | P.PN_ITS ---
Internal Medicine - PN: Subj *Date: 10/20/17 *Time: 09:34 Interval history: Pt feeling much better this am. No abdominal pain. No headache. Hungry. Has voided and had multiple small bowel movements overnight. Exam Vital signs and Labs for Last 24 Hours: Temp Pulse Resp BP Pulse Ox 97.6 F 64 16 96/59 96 10/19/17 23:30 10/19/17 23:30 10/19/17 23:30 10/19/17 23:30 10/19/17 23:30 Laboratory Results - last 24 hr 10/19/17 10:25: WBC 7.3 D, RBC 2.64 L, Hgb 8.0 L, Hct 23.8 L*, MCV 90.2, MCH 30.4, MCHC 33.7, RDW 13.5, Plt Count 170, MPV 11.5 H, Neut % (Auto) 54.2, Lymph % (Auto) 37.5, [place] % (Auto) 5.8, Eos % (Auto) 1.9, Baso % (Auto) 0.5, Neut # ( Auto) 3.9, Lymph # (Auto) 2.7, [place] # (Auto) 0.4, Eos # (Auto) 0.1, Baso # (Auto ) 0.0 I & O for Last 24 hours: Intake & Output 10/17/17 10/18/17 10/19/17 10/20/17 23:59 23:59 23:59 23:59 Intake Total 2946 / 3246 800 / 800 Output Total 1175 / 1975 Balance 1771 / 1271 800 / 800 Weight 85.729 kg - *Routine Abdominal Exam Present: soft, normoactive bowel sounds. Absent: tenderness, distended, rebound , guarding Assessment and Plan (1) Hemoperitoneum Start date: 10/18/17 Problem details: mild to moderate amount of fluid in pelvis consistent with blood Current visit: Yes Status: Resolved Category: Medical Code(s): K66.1 - Hemoperitoneum (2) Postoperative abdominal pain Start date: 10/18/17 Problem details: exam more concerning for ileus, gas distension Current visit : Yes Status: Resolved Category: Medical Code(s): R10.9 - Unspecified abdominal pain; G89.18 - Other acute postprocedural pain 27yo s/p laparoscopic unilateral salpingoophorectomy on admitted for pain control and abdominal distension. CT with mild to moderate blood in pelvis and large stool burden. Patient with no BM x days, s/p multiple narcotic meds to control worsening abdominal pain. Now, s/o 24hrs plus without any narcotic pain meds, a bowel regimen, and ambulation. Much improved. No further need for pain control. Passage of flatus and stool. Abdomen soft and nontender. Stable for discharge home to followup with Dr. Munoz.
--- NOTE | 2017-10-20 09:41 | HMH.DCSUM ---
General - General Admission date: 10/19/17 Discharge date: 10/20/17 HPI HPI: Patient is a 27yo female who is s/p laparoscopic salpingoophorectomy on . She was discharged home same day with pain medications. She experienced abdominal pain that was not controlled by the pain medications she was sent home with. She then exchanged her prescription on Saturday for Dilaudid po. On Saturday she took the Dilaudid x 2, hours apart. Per her partner, after taking the second tablet, she was noted to be short of breath, complaining of continued pain, and very drowsy. He then called 911 and she was transported to the ER via ambulance. In the ER, her Hct was noted to have decreased since her discharge and a CT was performed. Her CT showed moderate amount of fluid in the pelvis, a significant stool burden and air. Patient was admitted for observation, pain control, serial abdominal exams and serial Hct's. She was given IVH and kept NPO overnight. Her repeat Hct this am had decreased slightly to 23. This am, she complains again of pain. She has not passed gas since yesterday. She has not had a bowel movement since before the surgery. She is requesting to eat and go home. In May Patient had a hysterectomy with unilateral salpingoophorectomy that was complicated by intraabdominal bleeding that required a second emergency surgery. Objective Vital signs: Temp Pulse Resp BP Pulse Ox 97.6 F 64 16 96/59 96 10/19/17 23:30 10/19/17 23:30 10/19/17 23:30 10/19/17 23:30 10/19/17 23:30 - *Routine Abdominal Exam Present: soft, normoactive bowel sounds. Absent: tenderness, distended, rebound, guarding Hospital Course Hospital Course: Admitted for serial abdominal exams and serial hemograms. Noted to have distended and tender abdomen. No BM x days. Has not been ambulating and has been taking increasing doses of narcotic pain meds to address abdominal pain. CT with evidence of mild to moderate amount of blood in pelvis, but remarkable stool burden. Discontinued narcotic pain meds, started bowel regimen and encouraged frequent ambulation. Slow improvement over 24hrs with multiple bowel movement. KUB of abdomen showed continued stool and gas. Repeat hemogram stable. Patient able to pass more stool. Pain essentially resolved. Abdomen soft, nontender. AF VSS. Stable for discharge home. Results Labs on day of discharge: Labs from last 24 hours 10/19/17 10:25 WBC 7.3 D RBC 2.64 L Hgb 8.0 L Hct 23.8 L* MCV 90.2 MCH 30.4 MCHC 33.7 RDW 13.5 Plt Count 170 MPV 11.5 H Neut % (Auto) 54.2 Lymph % (Auto) 37.5 [place] % (Auto) 5.8 Eos % (Auto) 1.9 Baso % (Auto) 0.5 Neut # (Auto) 3.9 Lymph # (Auto) 2.7 [place] # (Auto) 0.4 Eos # (Auto) 0.1 Baso # (Auto) 0.0 DS: Diagnosis - Discharge Diagnosis (1) Hemoperitoneum Start date: 10/18/17 (Normal post-operative) Status: Resolved Problem details: mild to moderate amount of fluid in pelvis consistent with blood (2) Postoperative abdominal pain Start date: 10/18/17 Status: Resolved Problem details: exam more concerning for ileus, gas distension Discharge Plan - Patient Discharge Instructions DIET: advance to your usual diet Additional Instructions: Encourage ambulation. - Follow up Plan Follow up with: Isaac Munoz MD [Staff Physician] - Disposition: Home, Self-Intermediate Medications: Home Medications Medication Instructions Recorded Confirmed Type Hydromorphone HCl [Hydromorphone 4 mg PO NEEDED PRN 10/18/17 10/18/17 History 4mg Tab] Prescriptions/Medication Reconciliation: No Action promethazine 25 mg tablet 12.5 mg NG-TUBE Q6H PRN #20 tab PRN Reason: nausea and vomiting Hydromorphone HCl [Hydromorphone 4mg Tab] 4 mg PO NEEDED PRN PRN Reason: pain
--- NOTE | 2017-10-20 09:45 | P.DS_ITS ---
General - General Admission date: 10/19/17 Discharge date: 10/20/17 HPI HPI: Patient is a 27yo female who is s/p laparoscopic salpingoophorectomy on . She was discharged home same day with pain medications. She experienced abdominal pain that was not controlled by the pain medications she was sent home with. She then exchanged her prescription on Saturday for Dilaudid po. On Saturday she took the Dilaudid x 2, hours apart. Per her partner, after taking the second tablet, she was noted to be short of breath, complaining of continued pain, and very drowsy. He then called 911 and she was transported to the ER via ambulance. In the ER, her Hct was noted to have decreased since her discharge and a CT was performed. Her CT showed moderate amount of fluid in the pelvis, a significant stool burden and air. Patient was admitted for observation, pain control, serial abdominal exams and serial Hct's. She was given IVH and kept NPO overnight. Her repeat Hct this am had decreased slightly to 23. This am, she complains again of pain. She has not passed gas since yesterday. She has not had a bowel movement since before the surgery. She is requesting to eat and go home. In May Patient had a hysterectomy with unilateral salpingoophorectomy that was complicated by intraabdominal bleeding that required a second emergency surgery. Objective Vital signs: Temp Pulse Resp BP Pulse Ox 97.6 F 64 16 96/59 96 10/19/17 23:30 10/19/17 23:30 10/19/17 23:30 10/19/17 23:30 10/19/17 23:30 - *Routine Abdominal Exam Present: soft, normoactive bowel sounds. Absent: tenderness, distended, rebound , guarding Hospital Course Hospital Course: Admitted for serial abdominal exams and serial hemograms. Noted to have distended and tender abdomen. No BM x days. Has not been ambulating and has been taking increasing doses of narcotic pain meds to address abdominal pain. CT with evidence of mild to moderate amount of blood in pelvis, but remarkable stool burden. Discontinued narcotic pain meds, started bowel regimen and encouraged frequent ambulation. Slow improvement over 24hrs with multiple bowel movement. KUB of abdomen showed continued stool and gas. Repeat hemogram stable. Patient able to pass more stool. Pain essentially resolved. Abdomen soft , nontender. AF VSS. Stable for discharge home. Results Labs on day of discharge: Labs from last 24 hours 10/19/17 10:25 WBC 7.3 D RBC 2.64 L Hgb 8.0 L Hct 23.8 L* MCV 90.2 MCH 30.4 MCHC 33.7 RDW 13.5 Plt Count 170 MPV 11.5 H Neut % (Auto) 54.2 Lymph % (Auto) 37.5 [place] % (Auto) 5.8 Eos % (Auto) 1.9 Baso % (Auto) 0.5 Neut # (Auto) 3.9 Lymph # (Auto) 2.7 [place] # (Auto) 0.4 Eos # (Auto) 0.1 Baso # (Auto) 0.0 DS: Diagnosis - Discharge Diagnosis (1) Hemoperitoneum Start date: 10/18/17 (Normal post-operative) Status: Resolved Problem details: mild to moderate amount of fluid in pelvis consistent with blood (2) Postoperative abdominal pain Start date: 10/18/17 Status: Resolved Problem details: exam more concerning for ileus, gas distension Discharge Plan - Patient Discharge Instructions DIET: advance to your usual diet Additional Instructions: Encourage ambulation. - Follow up Plan Follow up w
--- NOTE | 2017-10-20 10:15 | PC.NURSE ---
DISCHARGE TEACHING COMPLETED AT THIS TIME. PT V/U.
== END 2017-10-20 10:25 | disposition home or self-care (01) ==
LOC: ER 23:51 → OB 10-19 01:53
PROVIDERS: Admitting Provider Obstetrics & Gynecology; Emergency Provider Emergency Medicine; Family Provider Physician Assistant; PCP Physician Assistant; Visit Provider Obstetrics & Gynecology
DX: G89.18 Other acute postprocedural pain (principal); R10.9 Unspecified abdominal pain; K66.1 Hemoperitoneum
CPT/HCPCS: 36415; 74018; 74177; 80053; 81001; 85025; 85610; 85730; 86850; 96360; 96361; 96365; 96366; 96374; 96375; 96376; 99284; G0378; J2270; J2405; Q9967

== ENCOUNTER 2017-10-23 18:48 | Emergency (ER) | payer OTHER, SELFPAY ==
[2017-10-23 19:17] VITALS: BP 129/57; PULSE 83; RESP 16; TEMP 36.6; O2SAT 98; BMI 29.6
[2017-10-23 20:08] LABS: Microscopic, Urine URINE MICROSCOPIC (MICROSCOPIC)
[2017-10-23 20:11] LABS: Appearance,Urine CLEAR (Clear); Blood, Urine Negative (Negative); Color,Urine YELLOW (Yellow); Glucose,Urine (UA) Negative (Negative); Ketones,Urine TRACE (Negative); Leukocyte Esterase,Urine Negative (Negative); Nitrate,Urine Negative (Negative); PH,Urine 6.5 (5.0-8.5); Protein,Urine TRACE (Negative); Specific Gravity, Urine 1.025 (1.005-1.030); Urobilinogen,Urine >=8.0 EU/dl (0.2)
[2017-10-23 20:12] LABS: Bilirubin,Urine 1+ (Negative)
[2017-10-23 20:19] VITALS: BP 115/64; PULSE 74; RESP 16; TEMP 36.6; O2SAT 95
[2017-10-23 20:22] LABS: Bacteria,Urine Trace /lpf; Mucus,Urine 4+ /lpf
--- NOTE | 2017-10-23 21:24 | PC.NURSE ---
med student spoke with dr dubois
--- NOTE | 2017-10-23 21:34 | HMH.EDUROGF ---
ED Disposition Clinical Impression: Acute urinary retention Disposition: Home, Self-Care Condition on Discharge: Good Instructions: How to Care for Your White Catheter -- Female Additional Instructions: call dr skinner in am Referrals: Amy Matute PA [Primary Care Provider] - - Critical Care Critical Care Time: No Attestation: On 10/23/17, the high probability of a clinically significant, sudden or life threatening deterioration of the following system(s) required my full and direct attention, intervention and personal management. The time I documented below is in addition to time spent performing reported procedures but includes the following listed in this critical care notation. Medical Decision Making - Medical Records Medical records reviewed: Yes: I reviewed the patient's medical records. Vital Signs: 10/23/17 19:17 10/23/17 20:19 Temperature 97.8 F 97.9 F Temperature Source Oral Oral Pulse Rate [Right Brachial] 83 74 Respiratory Rate 16 16 Blood Pressure [Right Arm] 129/57 115/64 Blood Pressure Mean [Right Arm] 81 81 Blood Pressure Source [Right Arm] Automatic Cuff Automatic Cuff Blood Pressure Position [Right Arm] Sitting Sitting 02 Sat by Pulse Oximetry 98 95 Oxygen Delivery Method Room Air Room Air - Lab Data Lab results reviewed: Yes: I reviewed the patient's lab results. Lab Results 10/23/17 19:51: Urine Color Yellow, Urine Appearance Clear, Urine pH 6.5, Ur Specific [place] 1.025, Urine Protein Trace, Urine Glucose (UA) Negative, Urine Ketones Trace, Urine Blood Negative, Urine Nitrate Negative, Urine Bilirubin 1+ A, Urine Urobilinogen >=8.0, Ur Leukocyte Esterase Negative, Urine RBC None, Urine WBC None, Ur Squamous Epith Cells 3-5, Urine Bacteria Trace, Urine Mucus 4+ 10/23/17 21:40: Sodium 137, Potassium 3.8, Chloride 103, Carbon Dioxide 26, Anion Gap 11.8, BUN 13, Creatinine 0.62, Estimated Creat Clear 184, Estimated GFR 115, Est GFR ( Amer) 140, Glucose 102 Result diagrams: 10/23/17 21:40 Orders (Tests/Meds): ED MEDICATIONS Generic Name Dose Route Start Last Admin Trade Name Freq PRN Reason Stop Dose Admin Sodium Chloride 1,000 mls @ 999 mls/hr 10/23/17 21:30 Sod Chlor 0.9% 1000ml Bag IV 10/23/17 22:30 .Q1H1M PERFECTO - Physician Consults Physician Consulted: amy Reason -: Pt condition - Julio C Inquiry Pt receiving controlled substance: No Female Urogenital HPI - General Chief complaint: Urogenital-Female Stated complaint: [id number] can't go to bath room Time Seen by Provider: 10/23/17 21:34 Mode of Arrival: Family Vehicle Source of Information: Patient Limitations: No Limitations Description of Symptoms (Recalled from ER Triage Doc. by RN): C/O UNABLE TO VOID SINCE 10/20/17. STATES ONLY OUTPUT IS DROPS. HAD HYSTERECTOMY ON 05/17/17 THEN HAD LEFT OVARY REMOVED ON 10/19/17. WAS ADMITTED TO HOSPITAL ON 10/19/17 FOR INABILITY TO VOID OR DEFECATE. 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 and she has diff urinating at this time- she had same issue last week and was admitted overnight- she has been doing ok but started with diff urinating over the last 2 days MD Complaint: other (dec urination ) Duration: intermittent Urinary Symptoms: difficulty urinating : no - Related Data Home Medications Medication Instructions Recorded Confirmed Hydromorphone HCl [Hydromorphone 4 mg PO NEEDED PRN 10/18/17 10/23/17 4mg Tab] Previous Rx's Medication Instructions Recorded promethazine 25 mg tablet 12.5 mg NG-TUBE Q6H PRN #20 tab 10/17/17 Allergies Allergy/AdvReac Type Severity Reaction Status Date / Time No Known Allergies Allergy Verified 10/23/17 19:34 [facility] History I have reviewed the patient's past medical history: Yes Medical Histor
--- NOTE | 2017-10-23 21:40 | ED_ITS ---
ED Disposition Clinical Impression: Acute urinary retention Disposition: Home, Self-Care Condition on Discharge: Good Instructions: How to Care for Your White Catheter -- Female Additional Instructions: call dr skinner in am Referrals: Amy Matute PA [Primary Care Provider] - - Critical Care Critical Care Time: No Attestation: On 10/23/17, the high probability of a clinically significant, sudden or life threatening deterioration of the following system(s) required my full and direct attention, intervention and personal management. The time I documented below is in addition to time spent performing reported procedures but includes the following listed in this critical care notation. Medical Decision Making - Medical Records Medical records reviewed: Yes: I reviewed the patient's medical records. Vital Signs: 10/23/17 19:17 10/23/17 20:19 Temperature 97.8 F 97.9 F Temperature Source Oral Oral Pulse Rate [Right Brachial] 83 74 Respiratory Rate 16 16 Blood Pressure [Right Arm] 129/57 115/64 Blood Pressure Mean [Right Arm] 81 81 Blood Pressure Source [Right Arm] Automatic Cuff Automatic Cuff Blood Pressure Position [Right Arm] Sitting Sitting 02 Sat by Pulse Oximetry 98 95 Oxygen Delivery Method Room Air Room Air - Lab Data Lab results reviewed: Yes: I reviewed the patient's lab results. Lab Results 10/23/17 19:51: Urine Color Yellow, Urine Appearance Clear, Urine pH 6.5, Ur Specific [place] 1.025, Urine Protein Trace, Urine Glucose (UA) Negative, Urine Ketones Trace, Urine Blood Negative, Urine Nitrate Negative, Urine Bilirubin 1+ A, Urine Urobilinogen >=8.0, Ur Leukocyte Esterase Negative, Urine RBC None, Urine WBC None, Ur Squamous Epith Cells 3-5, Urine Bacteria Trace, Urine Mucus 4 + 10/23/17 21:40: Sodium 137, Potassium 3.8, Chloride 103, Carbon Dioxide 26, Anion Gap 11.8, BUN 13, Creatinine 0.62, Estimated Creat Clear 184, Estimated GFR 115, Est GFR ( Amer) 140, Glucose 102 Result diagrams: 10/23/17 21:40 Orders (Tests/Meds): ED MEDICATIONS Generic Name Dose Route Start Last Admin Trade Name Freq PRN Reason Stop Dose Admin Sodium Chloride 1,000 mls @ 999 mls/hr 10/23/17 21:30 Sod Chlor 0.9% 1000ml Bag IV 10/23/17 22:30 .Q1H1M PERFECTO - Physician Consults Physician Consulted: amy Reason -: Pt condition - Julio C Inquiry Pt receiving controlled substance: No Female Urogenital HPI - General Chief complaint: Urogenital-Female Stated complaint: [id number] can't go to bath room Time Seen by Provider: 10/23/17 21:34 Mode of Arrival: Family Vehicle Source of Information: Patient Limitations: No Limitations Description of Symptoms (Recalled from ER Triage Doc. by RN): C/O UNABLE TO VOID SINCE 10/20/17. STATES ONLY OUTPUT IS DROPS. HAD HYSTERECTOMY ON 05/17/17 THEN HAD LEFT OVARY REMOVED ON 10/19/17. WAS ADMITTED TO HOSPITAL ON 10/19/17 FOR INABILITY TO VOID OR DEFECATE. 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
[2017-10-23 22:01] LABS: Anion Gap 11.8 mEq/L (5-15); Blood Urea Nitrogen 13 mg/dL (7-18); Carbon Dioxide 26 mmol/L (21.0-32.0); Chloride 103 mmol/L (98-107); Creatinine Clearance Estimated 184 mL/min (0-300); Creatinine,Serum 0.62 mg/dL (0.55-1.02); Estimated Glomerular Filt Rate 115 ml/min (>60); GFR (African American) 140 ML/MIN (>60); Glucose 102 mg/dL (74-106); Potassium 3.8 mmoL/L (3.5-5.1); Sodium 137 mmol/L (136-145)
[2017-10-23 22:16] VITALS: BP 101/65; PULSE 76; RESP 18; TEMP 36.6; O2SAT 99
== END 2017-10-23 22:33 | disposition home or self-care (01) ==
PROVIDERS: Emergency Medicine; Emergency Provider Emergency Medicine; Family Provider Physician Assistant; PCP Physician Assistant
DX: R33.8 Other retention of urine (principal); F17.210 Nicotine dependence, cigarettes, uncomplicated
CPT/HCPCS: 80048; 81001; 96365; 99283

== ENCOUNTER → 2017-11-06 09:53 | Outpatient (CLI) | payer OTHER, SELFPAY ==
--- NOTE | 2017-11-06 10:01 | US_ITS ---
US pelvis (no fetus) HISTORY: ITS.REASON: POST OP PAIN ORDERING PHYSICIAN: Isaac Munoz MD PATIENT AGE: 27 years COMPARISON: CT scan 10/18/2017 FINDINGS: There has been prior hysterectomy and bilateral oophorectomy. A multiseptated cystic mass is present in the pelvis measuring 10 x 11 cm may be related to postsurgical hematoma. This may better be evaluated with CT with IV and oral contrast if clinically warranted. IMPRESSION: Probable residual pelvic hematoma with a multilocular complex cystic mass measuring 11 x 10 cm
== END ==
PROVIDERS: Family Provider Physician Assistant; PCP Physician Assistant; Visit Provider Obstetrics & Gynecology
DX: G89.18 Other acute postprocedural pain (principal); R10.9 Unspecified abdominal pain
CPT/HCPCS: 76856

== ENCOUNTER → 2017-11-07 10:19 | Outpatient (CLI) | payer OTHER, SELFPAY ==
--- NOTE | 2017-11-07 12:10 | CT_ITS ---
CT pelvis wo/w con CLINICAL INDICATION: Evaluate pelvic mass, follow-up abnormal ultrasound ITS.REASON: pelvic mass ORDERING PHYSICIAN: Isaac Munoz MD PATIENT AGE: 27 years TECHNIQUE: Axial images are obtained of the pelvis without and with contrast. Immediate and delayed post enhanced images are obtained following intravenous administration of 75 mL's of Isovue-370. COMPARISON: 10/18/2017 CT scan and 11/06/2017 ultrasound FINDINGS: There is a multilocular cystic mass within the pelvis with heterogeneous density. This measures 12 x 12 x 9 cm. There is a 3 cm loculation along the right anterior and superior aspect. This is consistent with a pelvic hematoma. There is some slight increased density in the central aspect of the mass with hypoattenuation peripherally this does not enhance. No active extravasation is evident. This compresses upon the superior aspect of the urinary bladder. There is some stranding of the peritoneal fat anterior to the urinary bladder consistent with postsurgical changes versus some underlying inflammation. No gas evident within the collection. There is also compression upon the rectum by the mass. There is mild stranding of the subcutaneous fat in the lower abdominal wall on the previous surgery. IMPRESSION: Large multilocular cystic pelvic mass consistent with hematoma. Overall the volume of the cystic lesion is greater on today's exam at 12 x 12 x 9 cm, previously 13 x 11 x 5 cm. There is compression upon the urinary bladder superiorly and upon the anterior aspect of the rectum. Inflammatory changes are present in the pelvis anterior to the hematoma.
== END ==
PROVIDERS: PCP Physician Assistant; Visit Provider Obstetrics & Gynecology
DX: R19.00 Intra-abdominal and pelvic swelling, mass and lump, unspecified site (principal); R10.2 Pelvic and perineal pain
CPT/HCPCS: 72194; Q9967

== ENCOUNTER → 2017-11-22 14:34 | Outpatient (CLI) | payer OTHER, SELFPAY ==
[2017-11-22 14:39] LABS: Microscopic, Urine URINE MICROSCOPIC (MICROSCOPIC)
[2017-11-22 14:53] LABS: Basophils % 0.4 % (0.1-2.0); Eosinophils # 0.1 K/mm3 (0.0-0.4); Eosinophils % 1.1 % (0.1-12.0); Hematocrit 37.4 % (37.0-47.0); Lymphocytes # 2.4 K/mm3 (0.7-4.5); Lymphocytes % 22.6 K/mm3 (10-50); Mean Corpuscular HGB Conc 32.1 g/dL (31.8-35.4); Mean Corpuscular Hemoglobin 28.9 pg (27.0-31.2); Mean Corpuscular Volume 90.1 fl (81-99); Mean Platelet Volume 10.6 fl (7.4-10.4); Monocytes # 0.4 K/mm3 (0.1-1.0); Monocytes % 3.6 % (1.7-9.3); Neutrophils # 7.6 K/mm3 (1.8-7.8); Neutrophils % 72.3 % (37.0-80.0); Platelet Count 298 K/mm3 (142-424); Red Blood Count 4.15 M/mm3 (4.20-5.40); Red Cell Distribution Width 13.1 % (11.5-17.5); White Blood Count 10.5 K/mm3 (4.8-10.8)
[2017-11-22 15:18] LABS: Alanine Aminotransferase 16 U/L (12-78); Albumin Level 3.7 gm/dL (3.4-5.0); Albumin/Globulin Ratio 0.8 (1.1-1.8); Alkaline Phosphatase 114 U/L (46-116); Anion Gap 11.4 mEq/L (5-15); Aspartate Amino Transferase 11 U/L (15-37); Bilirubin,Total 0.3 mg/dL (0.2-1.0); Blood Urea Nitrogen 11 mg/dL (7-18); Calcium 8.9 mg/dL (8.5-10.1); Carbon Dioxide 27 mmol/L (21.0-32.0); Chloride 102 mmol/L (98-107); Creatinine,Serum 0.68 mg/dL (0.55-1.02); Estimated Glomerular Filt Rate 104 ml/min (>60); GFR (African American) 126 ML/MIN (>60); Globulin 4.6 gm/dl (1.3-3.2); Glucose 97 mg/dL (74-106); Potassium 4.4 mmoL/L (3.5-5.1); Sodium 136 mmol/L (136-145); Total Protein,Serum 8.3 gm/dL (6.4-8.2)
[2017-11-22 15:43] LABS: Appearance,Urine CLEAR (Clear); Bilirubin,Urine Negative (Negative); Blood, Urine Negative (Negative); Color,Urine YELLOW (Yellow); Glucose,Urine (UA) Negative (Negative); Ketones,Urine Negative (Negative); Leukocyte Esterase,Urine Negative (Negative); Nitrate,Urine Negative (Negative); PH,Urine 5.5 (5.0-8.5); Protein,Urine Negative (Negative); Specific Gravity, Urine 1.025 (1.005-1.030); Urobilinogen,Urine 0.2 EU/dl (0.2)
[2017-11-22 16:27] LABS: Bacteria,Urine Trace /lpf; Mucus,Urine 4+ /lpf; RBC,Urine Occasional #/hpf (0-3); Squamous Epithelial Cell,Urine Occasional #/hpf (0-5); WBC,Urine Occasional #/hpf (0-3)
== END ==
PROVIDERS: Visit Provider Obstetrics & Gynecology
DX: Z01.818 Encounter for other preprocedural examination (principal); R10.2 Pelvic and perineal pain
CPT/HCPCS: 36415; 80053; 81001; 85025

== ENCOUNTER 2017-11-26 06:18 | Day surgery (SDC) | payer OTHER, SELFPAY ==
[2017-11-26] VITALS (10 sets, daily range): BP systolic 108–147; BP diastolic 63–76; PULSE 58–98; RESP 14–18; TEMP 36.2–43; O2SAT 95–98; BMI 27.6
--- NOTE | 2017-11-26 07:05 | P.PN_ITS ---
[facility] Anesthesia Checklist - Patient Identification Patient Identification: Arm Band - Structural Data Admitted From: Home Consent for Planned Operative Procedure(s) Verified: Yes Verified Documents: Surgical Consent, History and Physical - NPO Status Verified Time NPO: 21:00 - Additional verifications Patient : No Anesthesia Reactions: No - Airway Assessment C-Spine Mobility Assessed: Yes TMJ Mobility Assessed: Yes Dentition: Good Dentition - Neurological Assessment Level of Consciousness: Awake Hx Seizures: Yes (9 yrs ago) Numbness or tingling in extremities: No - Anesthesia Plan Anesthesia Risk discussed: Yes Anesthesia Plan: Verified ASA Class: II Anesthesia Type: General [facility] Anesthesia HX I have reviewed the patient's past medical history: Yes Medical History: Denies:: Cancer, Diabetes Mellitus Type 1, Diabetes Mellitus Type 2, MRSA, Seizures Other Medical History: Reports: Other. Denies: Blood Transfusion Reaction Other Surgeries: Yes: , Hysterectomy-Total, Tubal Ligation, Other Amputation: No Fractures: No *Family Hx:: No significant family history, Cancer, Coronary Artery Disease, Diabetes
--- NOTE | 2017-11-26 08:10 | HMH.OPNOTE ---
Date of procedure: 11/26/17 Pre-op Diagnosis:: 1. Pelvic pain. 2. Pelvic mass (hematoma). Post-op Diagnosis:: 1. Pelvic pain. 2. Sterile pelvic hematoma. 3. Extensive pelvic adhesions. Procedure performed:: 1. Examination under anesthesia. 2. Culdocentesis. 3. Diagnostic laparoscopy. 4. Extensive lysis of adhesions. Surgeon:: Isaac Munoz MD INCLUSION TEACHER:: Salazar Blunt Anesthesia: GETA Estimated blood loss (mL): 35 Operative findings:: 1. Large sterile pelvic hematoma. 2. Extensive pelvic adhesions. Operative note:: After the patient was prepped and draped in usual fashion and general anesthesia was administered, a White catheter was placed per urethram, and examination under anesthesia revealed an intact vaginal cuff, and a large soft pelvic mass behind the cuff. The cuff was prepped with Betadine, and then, using a 12-gauge spinal needle, the mass was entered. 35 cc of dark blood (no bright red blood) was retrieved and sent for culture. The mass was no longer palpable vaginally. A moist sponge stick was placed in the vagina for elevation of the vaginal cuff during the laparoscopy. After appropriate regloving, the skin on either side of the umbilicus was tented up with towel clips. A small incision was made in the base of the umbilicus with a knife, and a Veress needle was inserted into the abdominal cavity. After demonstration of negative pressure, an adequate pneumoperitoneum was obtained. The Veress needle was then replaced with a trocar and cannula, using the Outcome Referrals system, and the trocar placed with the laparoscope. A number of filmy adhesions were noted from bowel and pelvis to the anterior abdominal wall. There was a thick band of omentum adherent to the anterior abdominal wall just above the bladder. The puncture site from the culdocentesis was noted. There was no reading from that site. The pelvic hematoma was not visible. The upper abdomen was explored. The liver and spleen edges and gallbladder were visualized and felt to be normal. Returning to the pelvis, using a combination of cautery and laparoscopic scissors, the adhesions were all taken down. Irrigation was then carried out. At the close of the procedure, the pelvis appeared normal. There was no undue bleeding. The fascial peritoneum was reduced, and the instruments were removed under direct visualization. The skin incision was infused with a dilute solution of Marcaine, as a local anesthetic, and closed with a subcuticular suture of 3-0 Vicryl. The wound was appropriately dressed. The sponge stick was removed from the vagina. The estimated blood loss was 35 cc. The urine was clear in the White catheter and the White was removed. The patient tolerated the procedure well, and was taken to PACU in excellent condition. She will be discharged today, if her vital signs are stable. Condition: stable Disposition: same day Specimens:: Blood from pelvic hematoma (cultured) Complications:: None
--- NOTE | 2017-11-26 08:20 | P.PN_ITS ---
[facility] Anesthesia Record Part I Intake, IV Amount: 1,200 Estimated blood loss (mL): 35 Urine output (mL): 150 Blood Pressure: 143/76 SaO2: 96 Pulse Rate: 84 Respiratory Rate: 14 Temperature: 98.2 F Patient is:: Awake, Stable Stable to PACU at:: 08:20
--- NOTE | 2017-11-26 08:20 | HMH.ANESII ---
[facility] Anesthesia Record Part II Discharge Time: 08:50 Destination: [facility] PACU nurse assessment reviewed?: Yes Patient Condition:: Good Anesthesia Complications:: None
--- NOTE | 2017-11-26 08:21 | P.PN_ITS ---
[facility] Anesthesia Record Part II Discharge Time: 08:50 Destination: [facility] PACU nurse assessment reviewed?: Yes Patient Condition:: Good Anesthesia Complications:: None
[2017-11-26 09:12] LABS: Hematocrit 32.2 % (37.0-47.0)
--- NOTE | 2017-11-26 11:54 | SUR.OPER ---
There was 150 ml clear bright yellow urine drained from pt's f/c at end of procedure. Dr Munoz aspirated 35 ml dark red blood from pelvic hematoma.
== END 2017-11-26 09:21 | disposition home or self-care (01) ==
LOC: OR 06:19
PROVIDERS: Family Provider Physician Assistant; PCP Physician Assistant; Visit Provider Obstetrics & Gynecology
PROC: (CPT 49320; principal; 2017-11-26 07:30)
DX: N94.89 Other specified conditions associated with female genital organs and menstrual cycle; N73.6 Female pelvic peritoneal adhesions (postinfective)
CPT/HCPCS: 57020; 49320; 49329; 85014; 85018; 87070; 87205; 96372; 96374; J2405; J2710

== ENCOUNTER 2017-12-05 10:43 | Emergency (ER) | payer OTHER, SELFPAY ==
[2017-12-05 10:55] VITALS: BP 125/63; PULSE 94; RESP 20; TEMP 36.6; O2SAT 98; BMI 29.6
--- NOTE | 2017-12-05 11:10 | HMH.EDUTC ---
[facility] Disposition Clinical Impression: Upper respiratory infection Qualifiers: URI type: unspecified viral URI Qualified Code(s): J06.9 - Acute upper respiratory infection, unspecified Disposition: Home, Self-Care Condition on Discharge: Good Instructions: DI for Viral Upper Respiratory Infection -- Adult Additional Instructions: Rest, fluids. RTC or PCP if symptoms not improving or significanty worsen. Prescriptions: Brompheniramine/Pseudoephed/Dm [Bromfed DM Cough Syrup 5mL] 5 - 10 ml PO Q4HP PRN 10 Days #240 syrup PRN Reason: Cough methylPREDNISolone [Medrol] 4 mg PO DIRECTED 6 Days #1 tab.ds.pk Referrals: Amy Matute PA [Primary Care Provider] - Time of Disposition: 11:14 Medical Decision Making - Julio C Inquiry Pt receiving controlled substance: No Vital Signs: 12/05/17 10:55 Temperature 97.9 F Temperature Source Temporal Artery Scan Pulse Rate [Brachial] 94 H Respiratory Rate 20 Blood Pressure [Right Arm] 125/63 Blood Pressure Mean [Right Arm] 83 Blood Pressure Position [Right Arm] Sitting 02 Sat by Pulse Oximetry 98 Oxygen Delivery Method Room Air [facility] HPI - General Stated complaint: cough runny nose chest congestion Time Seen by Provider: 12/05/17 11:10 Mode of Arrival: Ambulatory Source of Information: Patient Limitations: No Limitations Description of Symptoms (Recalled from Triage Doc. by RN): STUFFY NOSE, COUGH AND CHEST CONGESTION X 3 DAYS HEENT Symptoms (Recalled from RN notes): Yes Resp Symptoms (Recalled from RN notes): Yes Skin Symptoms (Recalled from RN notes): No MS Symptoms (Recalled from RN notes): No Functional Status (Recalled from RN notes): NA - History of Present Illness Provider Complaint: Cough, runny nose, chest congestion X 3 days. No fever. Denies ear pain or sore throat. No vomiting or diarrhea. She does smoke. Has taken Dayquil and Nyquil with little relief of symptoms. Her daughters had similar illness last week but are better now. - Related Data Previous Rx's Medication Instructions Recorded Brompheniramine/Pseudoephed/Dm 5 - 10 ml PO Q4HP PRN 10 Days #240 12/05/17 [Bromfed DM Cough Syrup 5mL] syrup methylPREDNISolone [Medrol] 4 mg PO DIRECTED 6 Days #1 12/05/17 tab.ds.pk Allergies Allergy/AdvReac Type Severity Reaction Status Date / Time No Known Allergies Allergy Verified 11/22/17 14:06 - Worker's Comp Is this a Worker's Comp case?: No [facility] History I have reviewed the patient's past medical history: Yes Medical History: Denies:: Cancer, Diabetes Mellitus Type 1, Diabetes Mellitus Type 2, MRSA, Seizures Other Medical History: Reports: Other. Denies: Blood Transfusion Reaction Comment: ADHD, Anxiety disorder, Bipolar,high-risk HPV, HSV-1, IBS, Schizophrenia-borderline, seizures, pituitary tumor,spina bifida occulta @S1. Other Surgeries: Yes: , Hysterectomy-Total, Tubal Ligation, Other Amputation: No Fractures: No Comment: 2008-Primary ,. 2010- Repeat . 2010- BTL. 2011- Dx. LSC. 2012- D&C, cone bx. 2016- LAVH,RT.SO. 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
--- NOTE | 2017-12-05 11:13 | ED_ITS ---
[facility] [place] Clinical Impression: Upper respiratory infection Qualifiers: URI type: unspecified viral URI Qualified Code(s): J06.9 - Acute upper respiratory infection, unspecified Disposition: Home, Self-Care Condition on Discharge: Good Instructions: DI for Viral Upper Respiratory Infection -- Adult Additional Instructions: Rest, fluids. RTC or PCP if symptoms not improving or significanty worsen. Prescriptions: Brompheniramine/Pseudoephed/Dm [Bromfed DM Cough Syrup 5mL] 5 - 10 ml PO Q4HP PRN 10 Days #240 syrup PRN Reason: Cough methylPREDNISolone [Medrol] 4 mg PO DIRECTED 6 Days #1 tab.ds.pk Referrals: Amy Matute PA [Primary Care Provider] - Time of Disposition: 11:14 Medical Decision Making - Julio C Inquiry Pt receiving controlled substance: No Vital Signs: 12/05/17 10:55 Temperature 97.9 F Temperature Source Temporal Artery Scan Pulse Rate [Brachial] 94 H Respiratory Rate 20 Blood Pressure [Right Arm] 125/63 Blood Pressure Mean [Right Arm] 83 Blood Pressure Position [Right Arm] Sitting 02 Sat by Pulse Oximetry 98 Oxygen Delivery Method Room Air [facility] [place] - General Stated complaint: cough runny nose chest congestion Time Seen by Provider: 12/05/17 11:10 Mode of Arrival: Ambulatory Source of Information: Patient Limitations: No Limitations Description of Symptoms (Recalled from Triage Doc. by RN): STUFFY NOSE, COUGH AND CHEST CONGESTION X 3 DAYS HEENT Symptoms (Recalled from RN notes): Yes Resp Symptoms (Recalled from RN notes): Yes Skin Symptoms (Recalled from RN notes): No MS Symptoms (Recalled from RN notes): No Functional Status (Recalled from RN notes): NA - History of Present Illness Provider Complaint: Cough, runny nose, chest congestion X 3 days. No fever. Denies ear pain or sore throat. No vomiting or diarrhea. She does smoke. Has taken Dayquil and Nyquil with little relief of symptoms. Her daughters had similar illness last week but are better now. - Related Data Previous Rx's Medication Instructions Recorded Brompheniramine/Pseudoephed/Dm 5 - 10 ml PO Q4HP PRN 10 Days #240 12/05/17 [Bromfed DM Cough Syrup 5mL] syrup methylPREDNISolone [Medrol] 4 mg PO DIRECTED 6 Days #1 12/05/17 tab.ds.pk Allergies Allergy/AdvReac Type Severity Reaction Status Date / Time No Known Allergies Allergy Verified 11/22/17 14:06 - Worker's Comp Is this a Worker's Comp case?: No [facility] History I have reviewed the patient's past medical history: Yes Medical History: Denies:: Cancer, Diabetes Mellitus Type 1, Diabetes Mellitus Type 2, MRSA, Seizures Other Medical History: Reports: Other. Denies: Blood Transfusion Reaction Comment: ADHD, Anxiety disorder, Bipolar,high-risk HPV, HSV-1, IBS, Schizophrenia-borderline, seizures, pituitary tumor,spina bifida occulta @S1. Other Surgeries: Yes: , Hysterectomy-Total, Tubal Ligation, Other Amputation: No Fractures: No Comment: 2008-Primary ,. 2010- Repeat . 2010- BTL. 2011- Dx. LSC. 2013- D&C, cone bx. 2017- LAVH,RT.SO. 2018- PVS Lt.SO, EXTENSIVE LYSIS OF ADHESIONS - Social History Smoking Status: Current every day smoker Tobacco Type: cigarettes # Packs/Day (cigarettes): 4 #Yrs smoked (if former smoker): 17 Alcohol Intake: never Substance Use Type: denies use Occupational Status: unemployed Housing: house
[2017-12-05 11:32] VITALS: BP 125/63; PULSE 94; RESP 20; TEMP 36.6; O2SAT 98
[2017-12-05 11:40] LABS: UTC Influenza A Antigen Negative (Negative); UTC Influenza B Antigen Negative (Negative); UTC Strep Screen (Rapid) Negative (Negative)
== END 2017-12-05 11:34 | disposition home or self-care (01) ==
PROVIDERS: Emergency Provider Physician Assistant; Family Provider Physician Assistant; PCP Physician Assistant
DX: J06.9 Acute upper respiratory infection, unspecified (principal); F90.9 Attention-deficit hyperactivity disorder, unspecified type; F41.9 Anxiety disorder, unspecified; F17.210 Nicotine dependence, cigarettes, uncomplicated
CPT/HCPCS: 87804; 87880; 99202

== ENCOUNTER → 2018-03-20 10:26 | Outpatient (REF) | payer OTHER, SELFPAY ==
[2018-03-20 17:38] LABS: Basophils # 0.1 K/mm3 (0-0.2); Basophils % 0.8 % (0.1-2.0); Eosinophils # 0.2 K/mm3 (0.0-0.4); Hematocrit 42.2 % (37.0-47.0); Hemoglobin 13.7 g/dL (12.2-16.2); Lymphocytes # 2.3 K/mm3 (0.7-4.5); Lymphocytes % 28.6 K/mm3 (10-50); Mean Corpuscular HGB Conc 32.4 g/dL (31.8-35.4); Mean Corpuscular Hemoglobin 29.7 pg (27.0-31.2); Mean Corpuscular Volume 91.7 fl (81-99); Mean Platelet Volume 11.5 fl (7.4-10.4); Monocytes # 0.4 K/mm3 (0.1-1.0); Monocytes % 5.2 % (1.7-9.3); Neutrophils # 5.2 K/mm3 (1.8-7.8); Neutrophils % 63.4 % (37.0-80.0); Platelet Count 239 K/mm3 (142-424); Red Cell Distribution Width 14.9 % (11.5-17.5); White Blood Count 8.2 K/mm3 (4.8-10.8)
[2018-03-20 20:30] LABS: Alanine Aminotransferase 22 U/L (12-78); Albumin Level 4.1 gm/dL (3.4-5.0); Albumin/Globulin Ratio 1.2 (1.1-1.8); Alkaline Phosphatase 80 U/L (46-116); Anion Gap 13.8 mEq/L (5-15); Aspartate Amino Transferase 10 U/L (15-37); Bilirubin,Total 0.4 mg/dL (0.2-1.0); Blood Urea Nitrogen 10 mg/dL (7-18); Calcium 8.8 mg/dL (8.5-10.1); Carbon Dioxide 26 mmol/L (21.0-32.0); Chloride 104 mmol/L (98-107); Chol/HDL Ratio 6.2 (1-3.5); Cholesterol 174 mg/dL (140-200); Creatinine,Serum 0.64 mg/dL (0.55-1.02); Estimated Glomerular Filt Rate 110 ml/min (>60); GFR (African American) 134 ML/MIN (>60); Globulin 3.4 gm/dl (1.3-3.2); Glucose 82 mg/dL (74-106); HDL Cholesterol 28 mg/dL (29-89); LDL Cholesterol 116 mg/dL (0-130); Potassium 4.8 mmoL/L (3.5-5.1); Sodium 139 mmol/L (136-145); T4 (Thyroxine) 7.3 ug/dl (4.7-13.3); Thyroid Stimulating Hormone 9.21 uIU/ml (0.358-3.740); Total Protein,Serum 7.5 gm/dL (6.4-8.2); Triglycerides 152 mg/dL (30-200); VLDL Cholesterol 30 mg/dL (0-40)
[2018-03-22 18:29] LABS: Vitamin D 25 Hydroxy 45.3 ng/mL (30.0-100.0)
== END ==
LOC: LAB 10:26
PROVIDERS: Visit Provider Physician Assistant
DX: E66.3 Overweight (principal)
CPT/HCPCS: 80053; 80061; 82652; 84436; 84443; 85025

== ENCOUNTER → 2018-06-02 10:00 | Outpatient (CLI) | payer OTHER, SELFPAY ==
--- NOTE | 2018-06-02 10:01 | CT_ITS ---
CT abdomen pelvis wo con CLINICAL INDICATION: Left lower quadrant pain, follow-up abnormal CT with possible pelvic mass. ITS.REASON: left lower quadrant pain ORDERING PHYSICIAN: Thiago Pope MD PATIENT AGE: 28 years COMPARISON: 05/29/2018 TECHNIQUE: Axial images obtained with sagittal and coronal reformats. All CT scans at the facility use one or more dose reduction, viz: automated exposure control, ma/kV adjustment per patient size (including targeted exams where dose is matched to indication, i.e. head), or iterative reconstruction technique. PROCEDURE: Oral Contrast: Redicat IV Contrast: None . FINDINGS: Lung bases are clear. There is minimal thickening of the pericardium anteriorly nonspecific and not significantly changed. The liver, gallbladder, adrenal glands, and pancreas and kidneys are unremarkable. There is borderline splenomegaly at 14 cm. No intestinal obstruction or free air. Unremarkable appendix. Mild prominence of the left ovary once again noted with suspected 2 cm cyst. There has been prior hysterectomy. Superior to the vaginal cuff there is a lobular collection measuring 3.7 x 3 x 3.2 cm with decreased attenuation centrally and with the peripheral rim. Is not significant changed. No free fluid evident.. No acute bony findings. IMPRESSION: 1. Persistent encapsulated collection in the mid pelvic region not significant changed. This does not appear to represent an unopacified bowel loop. This is superior to the vaginal cuff and may represent seroma or old hematoma. An abscess is felt to be less likely but not totally excluded. 2. 2 cm left ovarian cyst.
== END ==
PROVIDERS: Family Provider Physician Assistant; PCP Physician Assistant; Visit Provider Nurse Practitioner Obstetrics & Gynecology
DX: R10.32 Left lower quadrant pain (principal)
CPT/HCPCS: 74176

== ENCOUNTER → 2018-08-04 11:22 | Outpatient (POV) | payer OTHER, SELFPAY | PROVIDERS: Visit Provider Nurse Practitioner Acute Care | DX: Z00.00 Encounter for general adult medical examination without abnormal findings (principal) ==

== ENCOUNTER → 2018-09-03 18:44 | Outpatient (CLI) | payer MEDICAID, SELFPAY ==
[2018-09-03 19:12] LABS: Basophils # 0.1 K/mm3 (0-0.2); Basophils % 0.4 % (0.1-2.0); Eosinophils # 0.1 K/mm3 (0.0-0.4); Eosinophils % 0.8 % (0.1-12.0); Hematocrit 40.4 % (37.0-47.0); Hemoglobin 13.1 g/dL (12.2-16.2); Lymphocytes # 2.7 K/mm3 (0.7-4.5); Lymphocytes % 21.1 % (10-50); Mean Corpuscular HGB Conc 32.4 g/dL (31.8-35.4); Mean Corpuscular Volume 92.7 fl (81-99); Mean Platelet Volume 10.1 fl (7.4-10.4); Monocytes # 0.4 K/mm3 (0.1-1.0); Monocytes % 3.1 % (1.7-9.3); Neutrophils # 9.5 K/mm3 (1.8-7.8); Neutrophils % 74.5 % (37.0-80.0); Platelet Count 262 K/mm3 (142-424); Red Blood Count 4.35 M/mm3 (4.20-5.40); Red Cell Distribution Width 12.6 % (11.5-17.5); White Blood Count 12.7 K/mm3 (4.8-10.8)
[2018-09-03 20:01] LABS: Alanine Aminotransferase 40 U/L (12-78); Albumin Level 4.1 gm/dL (3.4-5.0); Albumin/Globulin Ratio 1.2 (1.1-1.8); Alkaline Phosphatase 79 U/L (46-116); Anion Gap 15.1 mEq/L (5-15); Aspartate Amino Transferase 18 U/L (15-37); Bilirubin,Total 0.4 mg/dL (0.2-1.0); Blood Urea Nitrogen 11 mg/dL (7-18); Carbon Dioxide 28 mmol/L (21.0-32.0); Chloride 99 mmol/L (98-107); Chol/HDL Ratio 6.5 (1-3.5); Cholesterol 201 mg/dL (140-200); Creatinine,Serum 0.68 mg/dL (0.55-1.02); Estimated Glomerular Filt Rate 103 ml/min (>60); GFR (African American) 125 ML/MIN (>60); Globulin 3.5 gm/dl (1.3-3.2); Glucose 123 mg/dL (74-106); HDL Cholesterol 31 mg/dL (29-89); LDL Cholesterol 131 mg/dL (0-130); Potassium 4.1 mmoL/L (3.5-5.1); Sodium 138 mmol/L (136-145); T4 (Thyroxine) 8.4 ug/dl (4.7-13.3); Thyroid Stimulating Hormone 4.79 uIU/ml (0.358-3.740); Total Protein,Serum 7.6 gm/dL (6.4-8.2); Triglycerides 197 mg/dL (30-200); VLDL Cholesterol 39 mg/dL (0-40)
[2018-09-06 21:45] LABS: Vitamin D 25 Hydroxy 23.5 ng/mL (30.0-100.0)
== END ==
PROVIDERS: Visit Provider Physician Assistant
DX: E03.9 Hypothyroidism, unspecified (principal)
CPT/HCPCS: 80053; 80061; 82652; 84436; 84443; 85025

== ENCOUNTER → 2019-04-14 13:38 | Outpatient (CLI) | payer OTHER, SELFPAY ==
[2019-04-14 14:33] LABS: Basophils # 0.1 K/mm3 (0-0.2); Basophils % 0.6 % (0.1-2.0); Eosinophils # 0.2 K/mm3 (0.0-0.4); Eosinophils % 1.8 % (0.1-12.0); Hemoglobin 13.7 g/dL (12.2-16.2); Lymphocytes # 2.7 K/mm3 (0.7-4.5); Mean Corpuscular HGB Conc 33.5 g/dL (31.8-35.4); Mean Corpuscular Hemoglobin 31.3 pg (27.0-31.2); Mean Corpuscular Volume 93.4 fl (81-99); Mean Platelet Volume 10.9 fl (7.4-10.4); Monocytes # 0.6 K/mm3 (0.1-1.0); Monocytes % 5.7 % (1.7-9.3); Neutrophils # 6.9 K/mm3 (1.8-7.8); Neutrophils % 65.9 % (37.0-80.0); Platelet Count 273 K/mm3 (142-424); Red Blood Count 4.39 M/mm3 (4.20-5.40); Red Cell Distribution Width 12.8 % (11.5-17.5); White Blood Count 10.4 K/mm3 (4.8-10.8)
[2019-04-14 14:53] LABS: Alanine Aminotransferase 22 U/L (12-78); Albumin/Globulin Ratio 1.1 (1.1-1.8); Alkaline Phosphatase 84 U/L (46-116); Anion Gap 16.7 mEq/L (5-15); Aspartate Amino Transferase 5 U/L (15-37); Bilirubin,Total 0.6 mg/dL (0.2-1.0); Blood Urea Nitrogen 9 mg/dL (7-18); Carbon Dioxide 24 mmol/L (21.0-32.0); Chloride 102 mmol/L (98-107); Chol/HDL Ratio 5.8 (1-3.5); Cholesterol 152 mg/dL (140-200); Creatinine,Serum 0.73 mg/dL (0.55-1.02); Estimated Glomerular Filt Rate 94 ml/min (>60); GFR (African American) 114 ML/MIN (>60); Globulin 3.5 gm/dl (1.3-3.2); Glucose 95 mg/dL (74-106); HDL Cholesterol 26 mg/dL (29-89); LDL Cholesterol 95 mg/dL (0-130); Potassium 4.7 mmoL/L (3.5-5.1); Sodium 138 mmol/L (136-145); T4 (Thyroxine) 7.8 ug/dl (4.7-13.3); Thyroid Stimulating Hormone 9.16 uIU/ml (0.358-3.740); Total Protein,Serum 7.5 gm/dL (6.4-8.2); Triglycerides 157 mg/dL (30-200); VLDL Cholesterol 31 mg/dL (0-40)
[2019-04-15 10:17] LABS: Vitamin D 25 Hydroxy 28.5 ng/mL (30.0-100.0)
== END ==
PROVIDERS: Visit Provider Physician Assistant
DX: E03.9 Hypothyroidism, unspecified (principal); E55.9 Vitamin D deficiency, unspecified; Z79.899 Other long term (current) drug therapy
CPT/HCPCS: 80053; 80061; 82652; 84436; 84443; 85025

== ENCOUNTER → 2019-05-15 17:10 | Outpatient (CLI) | payer OTHER, SELFPAY ==
[2019-05-15 18:45] LABS: Amphetamine/Metha Screen,Urine Negative ng/mL (<1000); Barbiturates Screen,Urine Negative ng/mL (<200); Benzodiazepines Screen,Urine Negative ng/mL (<200); Cannabinoid Screen,Urine Negative ng/mL (<50); Cocaine Screen,Urine Negative ng/mL (<300); Methadone Screen,Urine Negative ng/mL (<300); Opiate Screen,Urine Negative ng/mL (<300); Phencyclidine Screen,Urine Negative ng/mL (<25)
== END ==
PROVIDERS: Visit Provider Nurse Practitioner Family
DX: E66.9 Obesity, unspecified (principal); Z79.899 Other long term (current) drug therapy
CPT/HCPCS: 80305

== ENCOUNTER 2021-01-20 20:00 | Emergency (ER) | payer OTHER, SELFPAY ==
[2021-01-20 20:00] VITALS: BP 125/89; PULSE 79; RESP 20; TEMP 36.9; O2SAT 100; BMI 31.3
--- NOTE | 2021-01-20 20:15 | HMH.EDUTC ---
[facility] [place] Disposition Clinical Impression: Vomiting Qualifiers: Vomiting type: unspecified Vomiting Intractability: non-intractable Nausea presence: without nausea Qualified Code(s): R11.11 - Vomiting without nausea Disposition: Home, Self-Care Condition on Discharge: Good Instructions: Preventing the Spread of Coronavirus Discharge Instructions Additional Instructions: Clear liquids, bland diet. You have been tested for COVID19. Please isolate yourself as if you are positive until test results are received. Prescriptions: ondansetron HCL [Ondansetron 8mg tab*] 8 mg PO TIDP PRN 10 Days #30 tab PRN Reason: Vomiting Transmission Status: Pending to [facility] Referrals: Amy Matute PA [Primary Care Provider] - Forms: Work/School Release Time of Disposition: 20:27 Medical Decision Making - Julio C Inquiry Pt receiving controlled substance: No - Lab Data Lab results reviewed: Yes: I reviewed the patient's lab results. [facility] [place] HPI - General Stated complaint: covid tested Time Seen by Provider: 01/20/21 20:17 - History of Present Illness Provider Complaint: Patient has had body aches, felt hot, flushing X 3-4 days. No actual fever. Was very tired. Has had vomiting and diarrhea X 2 days. Works at [employer]. 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 Onset (ago): day(s) (4) Relieving factors: none Exacerbating factors: none Associated symptoms: denies other symptoms Treatments prior to arrival: none - Related Data Previous Rx's Medication Instructions Recorded levothyroxine 75 mcg tablet 75 mcg PO DAILY #90 tab 02/23/20 phentermine 37.5 mg tablet 37.5 mg PO DAILY #30 tab 02/23/20 ondansetron HCL [Ondansetron 8mg 8 mg PO TIDP PRN 10 Days #30 tab 01/20/21 tab*] Allergies Allergy/AdvReac Type Severity Reaction Status Date / Time No Known Allergies Allergy Verified 02/23/20 10:42 [facility] History - Hepatitis A Screen Attestation statement:: This patient has been screened for Hepatitis A risk factors. I have reviewed the patient's past medical history: Yes Medical History: Denies:: Cancer, Diabetes Mellitus Type 1, Diabetes Mellitus Type 2, MRSA, Seizures Other Medical History: Reports: Hypothyroidism, Thyroid Disease, Other. Denies: Blood Transfusion Reaction, Unexplained Bleeding Comment: ADHD. Anxiety disorder. Bipolar. High-risk HPV. HSV-1. HYPOTHYROIDISM. IBS. Schizophrenia-borderline. Seizures. Pituitary tumor. Spina bifida occulta @S1. Other Surgeries: Yes: , Hysterectomy-Total, Tubal Ligation, Other Amputation: No Fractures: No Comment: 2008-Primary ,. 2010- Repeat . 2010- BTL. 2011- Dx. LSC. 2012- D&C, cone bx. 2016- LAVH,RT.SO. 10/17/2017- PVS Lt.SO, EXTENSIVE LYSIS OF ADHESIONS. 11/26/2017-Culdocentesis, Dx lap., Extensive lysis of adhesions. - Social History Smoking Status: Former smoker Tobacco Type: cigarettes # Packs/Day (cigarettes): 3 #Yrs smoked (if former smoker): 18 Alcohol Intake: never Alcohol Intake Frequency:: other Substance Use Type: denies use Occupational Status: employed Housing: house Household Members: spouse, children Family Hx:: No significant family history, Cancer, Coronary Artery Disease, Diabetes [employer] history: Non-contributory ROS Obtained: Yes All systems reviewed & no additional complaints - Constitutional Constitutional: Reports body ache, Reports chills, Reports fatigue, Reports malaise - Gastrointestinal Gastrointestingal: Reports: loose stools, vomiting Physical Exam - General General appearance: alert, in no apparent distress - Head Head exam: normocephalic - Eye Eye exam: Present: PERRL - ENT ENT exam: Present: normal oropharynx, TM's normal bilaterally - Neck Neck exam: Absent: lymphadenopathy - Chest Chest inspection: Present: normal inspection, symmetric chest wall rise - Respiratory Respiratory exam: Present:
[2021-01-20 20:28] VITALS: BP 125/89; PULSE 79; RESP 20; TEMP 36.9; O2SAT 100
[2021-01-20 20:31] LABS: UTC Influenza A Antigen Negative (Negative)
[2021-01-20 20:32] LABS: UTC Influenza B Antigen Negative (Negative)
== END 2021-01-20 20:30 | disposition home or self-care (01) ==
PROVIDERS: Emergency Provider Physician Assistant; PCP Physician Assistant
DX: Z20.822 Contact with and (suspected) exposure to COVID-19 (principal); R11.11 Vomiting without nausea; R19.7 Diarrhea, unspecified; E03.9 Hypothyroidism, unspecified; F90.9 Attention-deficit hyperactivity disorder, unspecified type; Z87.891 Personal history of nicotine dependence; F20.9 Schizophrenia, unspecified; Z79.899 Other long term (current) drug therapy
CPT/HCPCS: 87804; 99202; G0463; U0003

== ENCOUNTER 2021-04-03 17:48 | Emergency (ER) | payer OTHER, SELFPAY ==
[2021-04-03 18:50] VITALS: BP 00/00; PULSE 0; RESP 0; TEMP -17.7; TEMP 0
== END 2021-04-03 18:55 | disposition left against medical advice (07) ==
LOC: UTC 18:09
PROVIDERS: Emergency Provider Nurse Practitioner; PCP Physician Assistant
DX: Z53.21 Procedure and treatment not carried out due to patient leaving prior to being seen by health care provider (principal)

== ENCOUNTER 2021-04-11 19:27 | Emergency (ER) | payer OTHER, SELFPAY ==
[2021-04-11 20:15] VITALS: BP 118/72; PULSE 70; RESP 20; TEMP 36.3; O2SAT 100; BMI 31.3
--- NOTE | 2021-04-11 20:53 | HMH.EDUTC ---
[facility] [place] Impression: Exposure to COVID-19 virus Disposition: Home, Self-Care Condition on Discharge: Good Instructions: Preventing the Spread of Coronavirus Discharge Instructions Additional Instructions: Drink plenty of fluids. Take tylenol for pain or fever. Return if you begin to have difficulty breathing. Follow up with your regular doctor. GO TO THE ER FOR ANY WORSENING SYMPTOMS Quarantine until you know the results of your covid-19 test. If it is positive, the health department should call you and give you further instructions about your length of Quarantine and other thing. Referrals: Amy Matute PA [Primary Care Provider] - Forms: Work/School Release Time of Disposition: 20:54 Medical Decision Making - Medical Records Medical records reviewed: No: I reviewed the patient's medical records. - Julio C Inquiry Pt receiving controlled substance: No Vital Signs: 04/11/21 20:15 04/11/21 20:54 Temperature 97.3 F L 97.3 F L Temperature Source Oral Pulse Rate 70 Pulse Rate [Left Brachial] 70 Respiratory Rate 20 20 Blood Pressure 118/72 Blood Pressure [Left Arm] 118/72 Blood Pressure Mean [Left Arm] 87 Blood Pressure Source [Left Arm] Automatic Cuff Blood Pressure Position [Left Arm] Sitting 02 Sat by Pulse Oximetry 100 Oxygen Delivery Method Room Air Orders (Tests/Meds): ORDERS Category Date Time Status Covid-19 Nasal PCR ([facility]) Routine Lab 04/11/21 20:22 [place] [facility] [place] - General Stated complaint: covid test Time Seen by Provider: 04/11/21 20:53 Mode of Arrival: Ambulatory Source of Information: Patient Limitations: No Limitations Description of Symptoms (Recalled from Triage Doc. by RN): COVID TEST D/T EXPOSURE. DENIES SYMPTOMS HEENT Symptoms (Recalled from RN notes): No Resp Symptoms (Recalled from RN notes): No Skin Symptoms (Recalled from RN notes): No MS Symptoms (Recalled from RN notes): No Functional Status (Recalled from RN notes): WNL - History of Present Illness Provider Complaint: She has been exposed to covid-19. She denies any symptoms so far. - Related Data Previous Rx's Medication Instructions Recorded levothyroxine 75 mcg tablet 75 mcg PO DAILY #90 tab 02/23/20 phentermine 37.5 mg tablet 37.5 mg PO DAILY #30 tab 02/23/20 ondansetron HCL [Ondansetron 8mg 8 mg PO TIDP PRN 10 Days #30 tab 01/20/21 tab*] Allergies Allergy/AdvReac Type Severity Reaction Status Date / Time No Known Allergies Allergy Verified 02/23/20 10:42 - Worker's Comp Is this a Worker's Comp case?: No [facility] History - Hepatitis A Screen Drug use history?: No High risk sexual behaviors?: No History of sexually transmitted infection?: No Currently employed?: No Childcare worker?: No Do you have indoor plumbing?: Yes Do you have electricity?: Yes Attestation statement:: This patient has been screened for Hepatitis A risk factors. I have reviewed the patient's past medical history: Yes Medical History: Denies:: Cancer, Diabetes Mellitus Type 1, Diabetes Mellitus Type 2, MRSA, Seizures Other Medical History: Reports: Hypothyroidism, Thyroid Disease, Other. Denies: Blood Transfusion Reaction, Unexplained Bleeding Comment: ADHD. Anxiety disorder. Bipolar. High-risk HPV. HSV-1. HYPOTHYROIDISM. IBS. Schizophrenia-borderline. Seizures. Pituitary tumor. Spina bifida occulta @S1. Other Surgeries: Yes: , Hysterectomy-Total, Tubal Ligation, Other Amputation: No Fractures: No Comment: 2008-Primary ,. 2010- Repeat . 2010- BTL. 2011- Dx. LSC. 2012- D&C, cone bx. 2016- LAVH,RT.SO. 10/17/2017- PVS Lt.SO, EXTENSIVE LYSIS OF ADHESIONS. 11/26/2017-Culdocentesis, Dx lap., Extensive lysis of adhesions. - Social History Smoking Status: Former smoker Tobacco Type: cigarettes # Packs/Day (cigarettes): 3 #Yrs smoked (if former smoker): 18 Alcohol Intake: never Alcohol Intake Frequency:: other S
[2021-04-11 20:54] VITALS: BP 118/72; PULSE 70; RESP 20; TEMP 36.3; O2SAT 100
== END 2021-04-11 21:05 | disposition home or self-care (01) ==
PROVIDERS: Emergency Provider Nurse Practitioner Family; PCP Physician Assistant
DX: Z20.822 Contact with and (suspected) exposure to COVID-19 (principal); E03.9 Hypothyroidism, unspecified
CPT/HCPCS: 99202; G0463; U0003

== ENCOUNTER 2021-04-13 12:03 | Emergency (ER) | payer OTHER, SELFPAY ==
[2021-04-13 12:04] VITALS: BP 136/89; PULSE 70; RESP 18; TEMP 37.2; O2SAT 99; BMI 32.1
--- NOTE | 2021-04-13 12:49 | HMH.EDUTC ---
[facility] [place]: Exposure to COVID-19 virus Disposition: Home, Self-Care Condition on Discharge: Good Instructions: DI for COVID-19 (Suspected or Confirmed ), Coronavirus Disease 2019, Preventing the Spread of Coronavirus Discharge Instructions Additional Instructions: *Monitor Temp, Over the counter Motrin or Tylenol as directed/as needed Tylenol every 4 hours and Motrin every 6 hours (as long as your family doctor has told you that you can take it) for fever or pain. and straight to ER if unable to lower temp less than 101.0 after medication given *Warm salt water gargles may help to soothe the throat *Throat Lozenges *Warm fluids like tea with honey may help to soothe the throat *Sleep elevated *Humidifier/Vaporizer Follow up IMMEDIATELY for new or worsening symptoms or no Noticeable improvement over the next 48-72 hours. 911 for difficulty breathing or swallowing You were tested for today for COVID19 your test result should be back in the next 24-48 hours, you may call to the [facility] to see if your test results are back in the next 48 hours [phone] [facility] hours are 9am-9pm You was given a handout with instructions for Self Quarantine and Self isolation for while you wait on test results and what to do if they are positive If you are positive the Health Dept will be contacting you also Make sure to take your Vitamins Vit. C Vit D and Zinc if you can take them Prescriptions: guaiFENesin [Mucinex 600mg tablet] 1 - 2 tab PO Q12HP PRN #20 tab.er.12h PRN Reason: Congestion Transmission Status: Pending to [facility] Referrals: Amy Matute PA [Primary Care Provider] - As needed Time of Disposition: 12:52 Medical Decision Making - Julio C Inquiry Pt receiving controlled substance: No Julio C was queried for this patient: No Vital Signs: 04/13/21 12:04 Temperature 99.0 F Temperature Source Oral Pulse Rate [Left Radial] 70 Respiratory Rate 18 Blood Pressure [Right Arm] 136/89 Blood Pressure Mean [Right Arm] 104 Blood Pressure Source [Right Arm] Automatic Cuff Blood Pressure Position [Right Arm] Sitting 02 Sat by Pulse Oximetry 99 Oxygen Delivery Method Room Air Orders (Tests/Meds): ORDERS Category Date Time Status Covid-19 Nasal PCR ([facility]) Routine Lab 04/13/21 12:15 Re[place] [facility] [place] - General Stated complaint: covid exposure, symptoms Time Seen by Provider: 04/13/21 12:50 Mode of Arrival: Ambulatory Source of Information: Patient Limitations: No Limitations Description of Symptoms (Recalled from Triage Doc. by RN): covid test HEENT Symptoms (Recalled from RN notes): Yes Resp Symptoms (Recalled from RN notes): No Skin Symptoms (Recalled from RN notes): No MS Symptoms (Recalled from RN notes): No Functional Status (Recalled from RN notes): na - History of Present Illness Provider Complaint: Patient states that her tested positive for COVID a couple of days ago and now she is having symptoms States that she is having body aches, chills, cough and nasal congestion and wanted to get tested for COVID - Related Data Previous Rx's Medication Instructions Recorded levothyroxine 75 mcg tablet 75 mcg PO DAILY #90 tab 02/23/20 phentermine 37.5 mg tablet 37.5 mg PO DAILY #30 tab 02/23/20 ondansetron HCL [Ondansetron 8mg 8 mg PO TIDP PRN 10 Days #30 tab 01/20/21 tab*] guaiFENesin [Mucinex 600mg tablet] 1 - 2 tab PO Q12HP PRN #20 04/13/21 tab.er.12h Allergies Allergy/AdvReac Type Severity Reaction Status Date / Time No Known Allergies Allergy Verified 02/23/20 10:42 - Worker's Comp Is this a Worker's Comp case?: No [facility] History - Hepatitis A Screen Drug use history?: No High risk sexual behaviors?: No History of sexually transmitted infection?: No Currently employed?: No Childcare worker?: No Do you have indoor plumbing?: Yes Do you have electricity?: Yes Attestation statement:: This patient has been screened for Hepa
[2021-04-13 13:07] VITALS: BP 136/89; PULSE 70; RESP 18; TEMP 37.2; O2SAT 99
--- NOTE | 2021-04-13 19:38 | PC.NURSE ---
PT NOTIFIED OF POSITIVE COVID RESULTS
== END 2021-04-13 13:08 | disposition home or self-care (01) ==
PROVIDERS: Emergency Provider Nurse Practitioner; PCP Physician Assistant
DX: U07.1 COVID-19 (principal); E03.9 Hypothyroidism, unspecified; Z87.891 Personal history of nicotine dependence
CPT/HCPCS: 99202; G0463; U0003

== ENCOUNTER 2021-04-22 20:32 | Emergency (ER) | payer OTHER, SELFPAY ==
[2021-04-22 20:35] VITALS: BP 123/77; PULSE 70; RESP 20; TEMP 36.7; O2SAT 99; BMI 32.1
[2021-04-22 20:50] VITALS: BP 123/77; PULSE 70; RESP 20; TEMP 36.7; O2SAT 99
--- NOTE | 2021-04-22 20:52 | HMH.EDUTC ---
[facility] [place] Disposition Clinical Impression: Encounter for laboratory testing for COVID-19 virus Disposition: Home, Self-Care Condition on Discharge: Good Instructions: DI for COVID-19 (Suspected or Confirmed ), Coronavirus Disease 2019, Preventing the Spread of Coronavirus Discharge Instructions Additional Instructions: *Monitor Temp, Over the counter Motrin or Tylenol as directed/as needed Tylenol every 4 hours and Motrin every 6 hours (as long as your family doctor has told you that you can take it) for fever or pain. and straight to ER if unable to lower temp less than 101.0 after medication given Follow up IMMEDIATELY for new or worsening symptoms or no Noticeable improvement over the next 48-72 hours. 911 for difficulty breathing or swallowing You were tested for today for COVID19 your test result should be back in the next 24-48 hours, you may call to the [facility] to see if your test results are back in the next 48 hours [phone] [facility] hours are 9am-9pm You was given a handout with instructions for Self Quarantine and Self isolation for while you wait on test results and what to do if they are positive If you are positive the Health Dept will be contacting you also Make sure to take your Vitamins Vit. C Vit D and Zinc if you can take them Referrals: Amy Matute PA [Primary Care Provider] - As needed Forms: Work/School Release Time of Disposition: 20:57 Medical Decision Making - Julio C Inquiry Pt receiving controlled substance: No Julio C was queried for this patient: No Vital Signs: 04/22/21 20:35 04/22/21 20:50 Temperature 98.0 F 98.0 F Temperature Source Oral Pulse Rate 70 Pulse Rate [Right Brachial] 70 Respiratory Rate 20 20 Blood Pressure 123/77 Blood Pressure [Right Arm] 123/77 Blood Pressure Mean [Right Arm] 92 Blood Pressure Source [Right Arm] Automatic Cuff Blood Pressure Position [Right Arm] Sitting 02 Sat by Pulse Oximetry 99 Oxygen Delivery Method Room Air Orders (Tests/Meds): ORDERS Category Date Time Status Covid-19 Nasal PCR ([facility]) Routine Lab 04/22/21 20:40 Received [facility] [place] HPI - General Stated complaint: covid test Time Seen by Provider: 04/22/21 20:52 Mode of Arrival: Ambulatory Source of Information: Patient Limitations: No Limitations Description of Symptoms (Recalled from Triage Doc. by RN): PATIENT PREVIOUSLY TESTED POSITIVE FOR COVID AND CAME OUT OF QUARANTINE YESTERDAY. WANTS RETESTED C/O HEADACHE AND NASAL CONGESTION HEENT Symptoms (Recalled from RN notes): Yes Resp Symptoms (Recalled from RN notes): No Skin Symptoms (Recalled from RN notes): No MS Symptoms (Recalled from RN notes): No Functional Status (Recalled from RN notes): WNL - History of Present Illness Provider Complaint: Patient states that she has been in quarantine for 10 days for COVID State that she is still having headache and nasal congestion and the health dept told her that she may need to come in and get retested for COVID so she did - Related Data Previous Rx's Medication Instructions Recorded levothyroxine 75 mcg tablet 75 mcg PO DAILY #90 tab 02/23/20 phentermine 37.5 mg tablet 37.5 mg PO DAILY #30 tab 02/23/20 ondansetron HCL [Ondansetron 8mg 8 mg PO TIDP PRN 10 Days #30 tab 01/20/21 tab*] guaiFENesin [Mucinex 600mg tablet] 1 - 2 tab PO Q12HP PRN #20 04/13/21 tab.er.12h Allergies Allergy/AdvReac Type Severity Reaction Status Date / Time No Known Allergies Allergy Verified 02/23/20 10:42 - Worker's Comp Is this a Worker's Comp case?: No [facility] History - Hepatitis A Screen Drug use history?: No High risk sexual behaviors?: No History of sexually transmitted infection?: No Currently employed?: No Childcare worker?: No Do you have indoor plumbing?: Yes Do you have electricity?: Yes Attestation statement:: This patient has been screened for Hepatitis A risk factors. I have reviewed the patient's past medical history: Yes Medical History: Denies:: Can
--- NOTE | 2021-04-23 12:09 | PC.NURSE ---
PT NOTIFIED OF POSITIVE COVID TEST RESULTS
== END 2021-04-22 21:02 | disposition home or self-care (01) ==
PROVIDERS: Emergency Provider Nurse Practitioner; PCP Physician Assistant
DX: U07.1 COVID-19 (principal); E03.9 Hypothyroidism, unspecified; F41.9 Anxiety disorder, unspecified; Z87.891 Personal history of nicotine dependence
CPT/HCPCS: 99202; G0463; U0003

== ENCOUNTER 2021-05-10 17:36 | Emergency (ER) | payer OTHER, SELFPAY ==
[2021-05-10 18:57] VITALS: BP 124/87; PULSE 75; RESP 18; TEMP 37; O2SAT 97; BMI 31.3
--- NOTE | 2021-05-10 19:06 | HMH.EDUTC ---
[facility] – [place] Disposition Clinical Impression: Sinusitis Qualifiers: Sinusitis location: unspecified location Chronicity: unspecified Qualified Code(s): J32.9 - Chronic sinusitis, unspecified Disposition: Home, Self-Care Condition on Discharge: Good Instructions: Sinusitis, DI for Sinusitis, Azithromycin Additional Instructions: *Monitor Temp, Over the counter Motrin or Tylenol as directed/as needed Tylenol every 4 hours and Motrin every 6 hours (as long as your family doctor has told you that you can take it) for fever or pain. and straight to ER if unable to lower temp less than 101.0 after medication given *Warm salt water gargles may help to soothe the throat *Throat Lozenges *Warm fluids like tea with honey may help to soothe the throat *Sleep elevated *Humidifier/Vaporizer Your throat swab was sent for culture. Those results are typically sent to your primary care. Be sure to follow up in 2-3 days with your family doctor/primary care physician if no improvement so they can review those result and treat if necessary. If you don?t have a primary care doctor, I recommend you get one but in the mean time, you will have to return to a walk in clinic Follow up IMMEDIATELY for new or worsening symptoms or no Noticeable improvement over the next 48-72 hours. 911 for difficulty breathing or swallowing Prescriptions: methylPREDNISolone [Medrol 4mg tab] 4 mg PO DIRECTED #21 tab Transmission Status: Pending to [facility] Azithromycin [Z-Nicolas 250mg Tab] 250 mg PO DIRECTED #6 tab Transmission Status: [facility] Referrals: Amy Matute PA [Primary Care Provider] - As needed Time of Disposition: 19:12 Medical Decision Making - Julio C Inquiry Pt receiving controlled substance: No Julio C was queried for this patient: No Vital Signs: 05/10/21 18:57 Temperature 98.6 F Temperature Source Oral Pulse Rate [Right] 75 Respiratory Rate 18 Blood Pressure [Right Arm] 124/87 Blood Pressure Mean [Right Arm] 99 02 Sat by Pulse Oximetry 97 - Lab Data Lab results reviewed: Yes: I reviewed the patient's lab results. Medical Decision Narrative: Patient states that she has taken azithromycin and Medrol before without reactions or complications [facility] HPI - General Stated complaint: sore throat,LANG Time Seen by Provider: 05/10/21 19:06 Description of Symptoms (Recalled from Triage Doc. by RN): COVID POS 2 WEEKS AGO, HEADACHE & SORE THROAT X3 DAYS HEENT Symptoms (Recalled from RN notes): No Resp Symptoms (Recalled from RN notes): No Skin Symptoms (Recalled from RN notes): No MS Symptoms (Recalled from RN notes): No Functional Status (Recalled from RN notes): WNL - History of Present Illness Provider Complaint: Patient states that she has been having sore throat, sinus congestion and pressure along with drainage in the back of her throat and headache State that she had COVID about a month ago and has had sinus pressure and pain ever since - Related Data Previous Rx's Medication Instructions Recorded levothyroxine 75 mcg tablet 75 mcg PO DAILY #90 tab 02/23/20 phentermine 37.5 mg tablet 37.5 mg PO DAILY #30 tab 02/23/20 ondansetron HCL [Ondansetron 8mg 8 mg PO TIDP PRN 10 Days #30 tab 01/20/21 tab*] guaiFENesin [Mucinex 600mg tablet] 1 - 2 tab PO Q12HP PRN #20 04/13/21 tab.er.12h Azithromycin [Z-Nicolas 250mg Tab] 250 mg PO DIRECTED #6 tab 05/10/21 methylPREDNISolone [Medrol 4mg 4 mg PO DIRECTED #21 tab 05/10/21 tab] Allergies Allergy/AdvReac Type Severity Reaction Status Date / Time No Known Allergies Allergy Verified 05/10/21 19:00 - Worker's Comp Is this a Worker's Comp case?: No [facility] History - Hepatitis A Screen Drug use history?: No High risk sexual behaviors?: No History of sexually transmitted infection?: No Currently employed?: No Childcare worker?: No Do you have indoor plumbing?: Yes Do you have electricity?: Yes Attestation st
[2021-05-10 19:20] VITALS: BP 124/87; PULSE 75; RESP 18; TEMP 37
[2021-05-10 20:13] LABS: UTC Strep Screen (Rapid) Negative (Negative)
== END 2021-05-10 19:21 | disposition home or self-care (01) ==
PROVIDERS: Emergency Provider Nurse Practitioner; PCP Physician Assistant
DX: J32.9 Chronic sinusitis, unspecified (principal); E03.9 Hypothyroidism, unspecified; Z87.891 Personal history of nicotine dependence
CPT/HCPCS: 87880; 99202; G0463

== ENCOUNTER → 2021-07-14 20:09 | Outpatient (CLI) | payer OTHER, SELFPAY | PROVIDERS: Visit Provider Nurse Practitioner Family | DX: Z20.822 Contact with and (suspected) exposure to COVID-19 (principal) | CPT/HCPCS: C9803; U0003; U0005 ==

== ENCOUNTER 2021-07-19 09:01 | Emergency (ER) | payer OTHER, SELFPAY ==
[2021-07-19 09:05] VITALS: BP 136/91; PULSE 70; RESP 18; TEMP 37.1; O2SAT 99
--- NOTE | 2021-07-19 09:50 | HMH.EDUTC ---
[facility] [place] Disposition Clinical Impression: Bronchitis Sinusitis Qualifiers: Sinusitis location: unspecified location Chronicity: unspecified Qualified Code(s): J32.9 - Chronic sinusitis, unspecified Disposition: Home, Self-Care Condition on Discharge: Good Instructions: DI for Cough -- Adult Additional Instructions: *Monitor Temp, Over the counter Motrin or Tylenol as directed/as needed Tylenol every 4 hours and Motrin every 6 hours (as long as your family doctor has told you that you can take it) for fever or pain. and straight to ER if unable to lower temp less than 101.0 after medication given *Warm salt water gargles may help to soothe the throat *Throat Lozenges *Warm fluids like tea with honey may help to soothe the throat *Sleep elevated *Humidifier/Vaporizer *Flonase 2 sprays in each nostril daily but be aware that it may take 2-3 days before you notice improvement *Bromfed may cause drowsiness. Know how it effects you (your child) before driving, caring for small child, or sending your child to school. Not other antihistamines/allergy medications while taking bromfed Follow up IMMEDIATELY for new or worsening symptoms or no Noticeable improvement over the next 48-72 hours. 911 for difficulty breathing or swallowing Prescriptions: Albuterol Sulfate [Proventil-HFA 90mcg/puff Inh] 1 - 2 puffs IH Q6HP PRN #1 each PRN Reason: Shortness Of Breath Transmission Status: Pending to [facility] methylPREDNISolone [Medrol 4mg tab] 4 mg PO DIRECTED #21 tab Transmission Status: Pending to [facility] Azithromycin [Z-Nicolas 250mg Tab] 250 mg PO DIRECTED #6 tab Transmission Status: Pending to [id number] Referrals: Amy Matute PA [Primary Care Provider] - As needed Time of Disposition: 10:00 Medical Decision Making - Julio C Inquiry Pt receiving controlled substance: No Julio C was queried for this patient: No Vital Signs: 07/19/21 09:05 Temperature 98.8 F Temperature Source Oral Pulse Rate [Right Brachial] 70 Respiratory Rate 18 Blood Pressure [Right Arm] 136/91 H Blood Pressure Mean [Right Arm] 106 Blood Pressure Source [Right Arm] Automatic Cuff Blood Pressure Position [Right Arm] Sitting 02 Sat by Pulse Oximetry 99 Oxygen Delivery Method Room Air [facility] [place] HPI - General Stated complaint: strep exposure, body aches, cough Time Seen by Provider: 07/19/21 09:50 Mode of Arrival: Ambulatory Source of Information: Patient Limitations: No Limitations Description of Symptoms (Recalled from Triage Doc. by RN): PATIENT C/O COUGH AND CHEST CONGESTION X 1 WEEK HEENT Symptoms (Recalled from RN notes): No Resp Symptoms (Recalled from RN notes): Yes Skin Symptoms (Recalled from RN notes): No MS Symptoms (Recalled from RN notes): No Functional Status (Recalled from RN notes): WNL - History of Present Illness Provider Complaint: Patient states that she has been having sinus congestion, sore throat and felt like she was having drainage in the back of her throat State that she is an everyday smoker and worried that she may be getting bronchitis again so she came in to get checked - Related Data Previous Rx's Medication Instructions Recorded Albuterol Sulfate [Proventil-HFA 1 - 2 puffs IH Q6HP PRN #1 each 07/19/21 90mcg/puff Inh] Azithromycin [Z-Nicolas 250mg Tab] 250 mg PO DIRECTED #6 tab 07/19/21 methylPREDNISolone [Medrol 4mg 4 mg PO DIRECTED #21 tab 07/19/21 tab] Allergies Allergy/AdvReac Type Severity Reaction Status Date / Time No Known Allergies Allergy Verified 07/14/21 11:47 - Worker's Comp Is this a Worker's Comp case?: No [facility] History - Hepatitis A Screen Drug use history?: No High risk sexual behaviors?: No History of sexually transmitted infection?: No Currently employed?: No Childcare worker?: No Do you have indoor plumbing?: Yes Do you have electricity?: Yes Attestation statement:: This patient has been screened for
[2021-07-19 10:01] VITALS: BP 136/91; PULSE 70; RESP 18; TEMP 37.1; O2SAT 99
== END 2021-07-19 10:07 | disposition home or self-care (01) ==
PROVIDERS: Emergency Provider Nurse Practitioner; PCP Physician Assistant
DX: J20.9 Acute bronchitis, unspecified (principal); J32.9 Chronic sinusitis, unspecified; E03.9 Hypothyroidism, unspecified
CPT/HCPCS: 99202; G0463

== ENCOUNTER 2021-09-20 10:19 | Emergency (ER) | payer OTHER, SELFPAY ==
[2021-09-20 13:33] VITALS: BP 0/0; PULSE 0; RESP 0; TEMP -17.7; TEMP 0
== END 2021-09-20 13:35 | disposition left against medical advice (07) ==
PROVIDERS: Emergency Provider Nurse Practitioner Family; PCP Physician Assistant
DX: Z53.21 Procedure and treatment not carried out due to patient leaving prior to being seen by health care provider (principal)

== ENCOUNTER → 2021-09-22 09:39 | Outpatient (CLI) | payer OTHER, SELFPAY | PROVIDERS: Visit Provider Nurse Practitioner | DX: Z20.822 Contact with and (suspected) exposure to COVID-19 (principal) | CPT/HCPCS: C9803; U0003; U0005 ==

== ENCOUNTER 2021-10-29 14:00 | Emergency (ER) | payer OTHER, SELFPAY ==
[2021-10-29 14:07] VITALS: BP 122/86; PULSE 82; RESP 14; TEMP 36.4; O2SAT 98; BMI 30.4
[2021-10-29 14:23] LABS: Apearance,Urine Turbid (Clear); Bilirubin,Urine Negative (Negative); Blood, Urine Negative (Negative); Color,Urine Dark Yellow (Yellow); Glucose,Urine (UA) Negative (Negative); Ketones,Urine Negative (Negative); Protein,Urine Negative (Negative); UTC Leukocyte Esterase,Urine Negative (Negative); UTC Nitrate,Urine Negative (Negative); Urobilinogen,Urine 2 EU/dl (0.2)
--- NOTE | 2021-10-29 14:48 | HMH.EDUTC ---
[facility] [place] Disposition Clinical Impression: Left hip pain Low back pain Qualifiers: Chronicity: acute Back pain laterality: left Sciatica presence: with sciatica Sciatica laterality: sciatica of left side Qualified Code(s): M54.42 - Lumbago with sciatica, left side Sciatica Qualifiers: Laterality: left Qualified Code(s): M54.32 - Sciatica, left side Disposition: Home, Self-Care Condition on Discharge: Good Instructions: Sciatica, DI for Low Back Pain, DI for Sciatica Additional Instructions: Go home and rest. It would be best if you rested tomorrow too. No heavy lifting. No twisting. Take the oral medications as directed. The muscle relaxer (cyclobenzaprine--Flexeril) will make you drowsy, so don't drive or operate heavy machinery after taking it. Follow up with your regular doctor. GO TO THE ER FOR ANY WORSENING SYMPTOMS OR CONCERN, ESPECIALLY BOWEL OR BLADDER ISSUES, SADDLE AREA NUMBNESS, FEVER, ETC Prescriptions: Cyclobenzaprine HCl [Cyclobenzaprine 10mg Tab] 10 mg PO BIDP PRN #20 tab PRN Reason: Muscle Spasm Transmission Status: Received by [facility] methylPREDNISolone [Medrol] 4 mg PO DIRECTED 6 Days #21 packet Transmission Status: Received by [id number] Referrals: Amy Matute PA [Primary Care Provider] - Time of Disposition: 16:13 Medical Decision Making - Medical Records Medical records reviewed: No: I reviewed the patient's medical records. - Julio C Inquiry Pt receiving controlled substance: No Vital Signs: 10/29/21 14:07 10/29/21 16:19 Temperature 97.6 F 97.6 F Temperature Source Oral Pulse Rate 82 Pulse Rate [Left] 82 Respiratory Rate 14 14 Blood Pressure 122/86 Blood Pressure [Right Arm] 122/86 Blood Pressure Mean [Right Arm] 98 02 Sat by Pulse Oximetry 98 - Lab Data Lab Results 10/29/21 14:22: Urine Color Dark yellow, Urine Appearance Turbid, Urine pH 7.0, Ur Specific [place] 1.020, Urine Protein Negative, Urine Glucose (UA) Negative, Urine Ketones Negative, Urine Blood Negative, Urine Nitrate Negative, Urine Bilirubin Negative, Urine Urobilinogen 2, Ur Leukocyte Esterase Negative Orders (Tests/Meds): ORDERS Category Date Time Status Urine Culture Stat Micro 10/29/21 14:17 Received [facility] [place] HPI - General Stated complaint: lower left back/abd pain Time Seen by Provider: 10/29/21 14:51 Mode of Arrival: Ambulatory Source of Information: Patient Limitations: No Limitations Description of Symptoms (Recalled from Triage Doc. by RN): pt c/o LLQ abd pain and back pain. x1 wk pt states she can't hardly lift her L leg to put her pants on. HEENT Symptoms (Recalled from RN notes): No Resp Symptoms (Recalled from RN notes): No Skin Symptoms (Recalled from RN notes): No MS Symptoms (Recalled from RN notes): Yes Functional Status (Recalled from RN notes): wnl - History of Present Illness Provider Complaint: She states that for the past week approx she has had low back pain and left hip pain. She denies any known history of injury. - Related Data Previous Rx's Medication Instructions Recorded Cyclobenzaprine HCl 10 mg PO BIDP PRN #20 tab 10/29/21 [Cyclobenzaprine 10mg Tab] methylPREDNISolone [Medrol] 4 mg PO DIRECTED 6 Days #21 10/29/21 packet Allergies Allergy/AdvReac Type Severity Reaction Status Date / Time No Known Allergies Allergy Verified 09/20/21 17:09 - Worker's Comp Is this a Worker's Comp case?: No [facility] History - Hepatitis A Screen Drug use history?: No High risk sexual behaviors?: No History of sexually transmitted infection?: No Currently employed?: No Childcare worker?: No Do you have indoor plumbing?: Yes Do you have electricity?: Yes Attestation statement:: This patient has been screened for Hepatitis A risk factors. I have reviewed the patient's past medical history: Yes Medical History: Denies:: Cancer, Diabetes Mellitus Type 1, Diabetes Mellitus Type 2, MRSA, Seiz
--- NOTE | 2021-10-29 14:58 | XR_ITS ---
PROCEDURE INFORMATION: Exam: XR Lumbosacral Spine Exam date and time: 10/29/2021 2:58 PM Age: 31 years old Clinical indication: Low back pain; Additional info: Low back pain, no injury TECHNIQUE: Imaging protocol: XR of the lumbosacral spine. Views: 2 or 3 views. COMPARISON: No relevant prior studies available. FINDINGS: Bones/joints: No acute fracture or spondylolisthesis. Disc spaces are preserved. No significant degenerative changes. SI joints are normal. Soft tissues: Unremarkable. IMPRESSION: No acute findings.
--- NOTE | 2021-10-29 14:58 | XR_ITS ---
PROCEDURE INFORMATION: Exam: XR Left Hip Exam date and time: 10/29/2021 2:58 PM Age: 31 years old Clinical indication: Prior surgery; Surgery date: 6+ months; Surgery type: Hysterectomy; Patient HX: Left hip pain , no injury. ; Additional info: Left hip pain, no injury TECHNIQUE: Imaging protocol: XR Left hip. Views: 2 or 3 views hip with pelvis when performed. COMPARISON: CR XR LUMBAR SPINE 2-3V 10/29/2021 3:07 PM FINDINGS: Bones/joints: No acute fracture or dislocation. The hip joints, SI joints and pubic symphysis are unremarkable. Normal bone mineralization. Soft tissues: Unremarkable. IMPRESSION: No acute findings.
[2021-10-29 16:19] VITALS: BP 122/86; PULSE 82; RESP 14; TEMP 36.4
== END 2021-10-29 16:21 | disposition home or self-care (01) ==
PROVIDERS: Emergency Provider Nurse Practitioner Family; PCP Physician Assistant
DX: M54.42 Lumbago with sciatica, left side (principal); E03.9 Hypothyroidism, unspecified; Z87.891 Personal history of nicotine dependence
CPT/HCPCS: 72100; 73502; 81003; 87086; 99202; G0463

== ENCOUNTER 2021-11-23 09:27 | Emergency (ER) | payer OTHER, SELFPAY ==
[2021-11-23 11:15] VITALS: BP 115/82; PULSE 109; RESP 19; TEMP 36.7; O2SAT 99; BMI 30.7
[2021-11-23 11:41] LABS: UTC Influenza A Antigen Negative (Negative); UTC Influenza B Antigen Negative (Negative)
--- NOTE | 2021-11-23 11:46 | HMH.EDUTC ---
[facility] [place] Clinical Impression: Low back strain Qualifiers: Encounter type: initial encounter Qualified Code(s): S39.012A - Strain of muscle, fascia and tendon of lower back, initial encounter Disposition: Home, Self-Care Condition on Discharge: Good Instructions: Diarrhea, DI for Nausea -- Adult Additional Instructions: Try taking muscle relaxer in the evening to help with muscle spasms in lower back Over the counter Biofreeze and or lidocaine patches may help with back pain Make sure that you are drinking plenty of fluids Follow up with your Family Doctor if no improvement or any worsening of symptoms Prescriptions: Ondansetron [Zofran 4mg ODT] 4 mg PO TIDP PRN #10 tab PRN Reason: Nausea Transmission Status: Pending to [id number] Referrals: Amy Matute PA [Primary Care Provider] - As needed Time of Disposition: 12:09 Medical Decision Making - Julio C Inquiry Pt receiving controlled substance: No Julio C was queried for this patient: No Vital Signs: 11/23/21 11:15 Temperature 98.0 F Temperature Source Oral Pulse Rate [Left Brachial] 109 H Respiratory Rate 19 Blood Pressure [Left Arm] 115/82 Blood Pressure Mean [Left Arm] 93 Blood Pressure Source [Left Arm] Automatic Cuff Blood Pressure Position [Left Arm] Sitting 02 Sat by Pulse Oximetry 99 Oxygen Delivery Method Room Air - Lab Data Lab results reviewed: Yes: I reviewed the patient's lab results. Lab Results 11/23/21 11:16: Group A Strep Rapid Negative 11/23/21 11:28: Influenza Type A Ag Negative, Influenza Type B Ag Negative Orders (Tests/Meds): ORDERS Category Date Time Status Strep Screen Confirmation Stat Micro 11/23/21 11:16 Received [facility] [place] H[place] - General Stated complaint: runny nose, cough, fever, lower back pain Time Seen by Provider: 11/23/21 11:46 Mode of Arrival: Ambulatory Source of Information: Patient Limitations: No Limitations Description of Symptoms (Recalled from Triage Doc. by RN): PATIENT C/O LOWER BACK PAIN, STOMACH ACHE, RUNNY NOSE, AND COUGH X 2 DAYS HEENT Symptoms (Recalled from RN notes): Yes Resp Symptoms (Recalled from RN notes): Yes Skin Symptoms (Recalled from RN notes): No MS Symptoms (Recalled from RN notes): Yes Functional Status (Recalled from RN notes): WNL - History of Present Illness Provider Complaint: Patient state that she is feeling achy in her lower back area State that she was seen a few weeks ago and dx with low back pain with sciatica and given muscle relaxers States that it did help but now it is back but hasnt been taking the muscle relaxers this time States that this morning she had some nausea and diarrhea States that she has also had cough and runny nose for a couple of days and her kids have been sick too worried she may have flu and strep throat - Related Data Previous Rx's Medication Instructions Recorded Cyclobenzaprine HCl 10 mg PO BIDP PRN #20 tab 10/29/21 [Cyclobenzaprine 10mg Tab] methylPREDNISolone [Medrol] 4 mg PO DIRECTED 6 Days #21 10/29/21 packet Ondansetron [Zofran 4mg ODT] 4 mg PO TIDP PRN #10 tab 11/23/21 Allergies Allergy/AdvReac Type Severity Reaction Status Date / Time No Known Allergies Allergy Verified 09/20/21 17:09 - Worker's Comp Is this a Worker's Comp case?: No [facility] History - Hepatitis A Screen Drug use history?: No High risk sexual behaviors?: No History of sexually transmitted infection?: No Currently employed?: No Childcare worker?: No Do you have indoor plumbing?: Yes Do you have electricity?: Yes Attestation statement:: This patient has been screened for Hepatitis A risk factors. I have reviewed the patient's past medical history: Yes Medical History: Denies:: Cancer, Diabetes Mellitus Type 1, Diabetes Mellitus Type 2, MRSA, Seizures Other Medical History: Reports: Hypothyroidism, Thyroid Disease, Other. Denies: Blood Transfusion Reaction, Unexplained Bleeding Comment: ADHD. Anxie
[2021-11-23 11:57] LABS: Strep Scrn Group A (Rapid) Negative (Negative)
[2021-11-23 12:10] VITALS: BP 115/82; PULSE 109; RESP 19; TEMP 36.7; O2SAT 99
== END 2021-11-23 12:13 | disposition home or self-care (01) ==
PROVIDERS: Emergency Provider Nurse Practitioner; PCP Physician Assistant
DX: S39.012A Strain of muscle, fascia and tendon of lower back, initial encounter (principal); R10.9 Unspecified abdominal pain; E03.9 Hypothyroidism, unspecified; K58.9 Irritable bowel syndrome, unspecified; D35.2 Benign neoplasm of pituitary gland; G40.909 Epilepsy, unspecified, not intractable, without status epilepticus; Q05.9 Spina bifida, unspecified; A63.0 Anogenital (venereal) warts; F90.9 Attention-deficit hyperactivity disorder, unspecified type; F43.10 Post-traumatic stress disorder, unspecified; F20.9 Schizophrenia, unspecified; F31.9 Bipolar disorder, unspecified; F41.9 Anxiety disorder, unspecified; Z79.52 Long term (current) use of systemic steroids; Z79.899 Other long term (current) drug therapy; Z87.891 Personal history of nicotine dependence; Z82.49 Family history of ischemic heart disease and other diseases of the circulatory system; Z80.9 Family history of malignant neoplasm, unspecified; Z83.3 Family history of diabetes mellitus
CPT/HCPCS: 87430; 87804; 99213; G0463

== ENCOUNTER 2021-11-27 15:50 | Emergency (ER) | payer OTHER, SELFPAY ==
[2021-11-27 15:51] VITALS: BP 134/86; PULSE 107; RESP 16; TEMP 36.9; O2SAT 95; BMI 16.7
--- NOTE | 2021-11-27 15:53 | HMH.EDGENADL ---
ED Disposition Clinical Impression: Lumbar radiculopathy Disposition: Home, Self-Care Condition on Discharge: Good Instructions: DI for Low Back Pain Additional Instructions: Please follow up with your primary care physician in 2-3 days for further management. You have also been provided script for physical therapy at [facility]. Please take the robaxin, lidocaine patches and toradol as prescribed for pain control. Please return for any concerning symptoms such as urinary retention, fecal incontinence, inability to ambulate/walk or any other concerns. 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 The time I documented below is in addition to time spent performing reported procedures but includes the following listed in this critical care notation. Medical Decision Making - Medical Records Medical records reviewed: Yes: I reviewed the patient's medical records. - Julio C Inquiry Pt receiving controlled substance: No Vital Signs: 11/27/21 15:51 Temperature 98.5 F Temperature Source Oral Pulse Rate [Right] 107 H Respiratory Rate 16 Blood Pressure [Right Arm] 134/86 Blood Pressure Mean [Right Arm] 102 Blood Pressure Source [Right Arm] Automatic Cuff Blood Pressure Position [Right Arm] Sitting 02 Sat by Pulse Oximetry 95 Oxygen Delivery Method Room Air - Lab Data Lab results reviewed: Yes: I reviewed the patient's lab results. Lab Results 11/27/21 16:20: Urine Color Yellow, Urine Appearance Clear, Urine pH 6.0, Ur Specific [place] 1.020, Urine Protein Negative, Urine Glucose (UA) Negative, Urine Ketones Negative, Urine Blood Negative, Urine Nitrate Negative, Urine Bilirubin Negative, Urine Urobilinogen 0.2, Ur Leukocyte Esterase Negative, Urine RBC None, Urine WBC None, Ur Squamous Epith Cells Occasional, Urine Bacteria Trace Orders (Tests/Meds): ED MEDICATIONS Generic Name Dose Route Start Last Admin Trade Name Tram PRN Reason Stop Dose Admin Methocarbamol 500 mg 11/27/21 21:00 11/27/21 16:14 Methocarbamol 500mg Tablet PO 12/27/21 20:59 500 mg BID PERFECTO Administration Discontinued Medications Generic Name Dose Route Start Last Admin Trade Name Tram PRN Reason Stop Dose Admin Ketorolac Tromethamine 30 mg 11/27/21 15:58 11/27/21 16:13 Ketorolac 30mg/Ml Vial IM 11/27/21 15:59 30 mg ONCE ONE Administration Lidocaine 1 each 11/27/21 15:58 11/27/21 16:13 Lidocaine 5% Transdermal Patch TP 11/27/21 15:59 1 each ONCE ONE Administration ORDERS Category Date Time Status Urine Culture Routine Micro 11/27/21 16:20 Received Medical Decision Narrative: Miss welch is a 31 yo female w/ PMH for chonic lower back pain who presents to the ED for lower back pain. Patient is neurovascularly intact. Ambulatory prior to arrival. Difffuse lower back pain. No urinary retention, fecal incontinence or saddle anesthesia. Low suspicion for cauda equina at this time. Patient has nor neurological sx. Sx consistent with muscle spasms. Patient is given lidociane patches, robxin and toradol w/ significant symptomatic relief. patient reports feeling much improved. Patient discharged in stable condition and informed to fu w/ her pcp in 2
[2021-11-27 16:26] LABS: Microscopic, Urine URINE MICROSCOPIC (MICROSCOPIC)
[2021-11-27 17:04] LABS: Appearance,Urine CLEAR (Clear); Bilirubin,Urine Negative (Negative); Blood, Urine Negative (Negative); Color,Urine YELLOW (Yellow); Glucose,Urine (UA) Negative (Negative); Ketones,Urine Negative (Negative); Leukocyte Esterase,Urine Negative (Negative); Nitrate,Urine Negative (Negative); Protein,Urine Negative (Negative); Urobilinogen,Urine 0.2 EU/dl (0.2)
[2021-11-27 17:18] LABS: Bacteria,Urine Trace /lpf; Squamous Epithelial Cell,Urine Occasional #/hpf (0-5)
[2021-11-27 18:06] VITALS: BP 132/70; PULSE 70; RESP 16; TEMP 37.1; O2SAT 98
== END 2021-11-27 18:07 | disposition home or self-care (01) ==
PROVIDERS: Emergency Provider Student in an Organized Health Care Education/Training Program; PCP Physician Assistant
DX: M54.16 Radiculopathy, lumbar region (principal); B00.1 Herpesviral vesicular dermatitis; E03.9 Hypothyroidism, unspecified; K58.9 Irritable bowel syndrome, unspecified; D35.2 Benign neoplasm of pituitary gland; G40.909 Epilepsy, unspecified, not intractable, without status epilepticus; F90.9 Attention-deficit hyperactivity disorder, unspecified type; Q05.9 Spina bifida, unspecified; F20.9 Schizophrenia, unspecified; F43.10 Post-traumatic stress disorder, unspecified; F31.9 Bipolar disorder, unspecified; F41.9 Anxiety disorder, unspecified; Z79.899 Other long term (current) drug therapy; Z87.891 Personal history of nicotine dependence; Z82.49 Family history of ischemic heart disease and other diseases of the circulatory system; Z80.9 Family history of malignant neoplasm, unspecified; Z83.3 Family history of diabetes mellitus
CPT/HCPCS: 81001; 87086; 96372; 99284

== ENCOUNTER → 2021-11-30 11:36 | Outpatient (CLI) | payer OTHER, SELFPAY ==
[2021-11-30 11:40] LABS: Adenovirus F 40/41, stool Not Detected (NotDetected); Astrovirus Not Detected (NotDetected); Campylobacter Not Detected (NotDetected); Cryptosporidium Not Detected (NotDetected); Cyclospora Cayetanesis Not Detected (NotDetected); Entamoeba histolytica Not Detected (NotDetected); Enteroaggregative E coli Not Detected (NotDetected); Enteropathogenic E coli Not Detected (NotDetected); Enterotoxigenic E coli Not Detected (NotDetected); Giardia lamblia Not Detected (NotDetected); Norovirus Not Detected (NotDetected); Plesimonas Shigalloides, PCR Not Detected (NotDetected); Rotavirus A Not Detected (NotDetected); Salmonella, PCR Not Detected (NotDetected); Sapovirus Not Detected (NotDetected); Shiga-like toxin E coli Not Detected (NotDetected); Shigella Enterovasive E coli Not Detected (NotDetected); Vibrio Cholerae Not Detected (NotDetected); Vibrio, PCR Not Detected (NotDetected); Yersinia Entercolitica, PCR Not Detected (NotDetected)
[2021-11-30 15:40] LABS: Alanine Aminotransferase 56 U/L (12-78); Albumin Level 4.7 g/dl (3.5-5.0); Albumin/Globulin Ratio 1.5 (1.1-1.8); Alkaline Phosphatase 84 U/L (38-126); Anion Gap 14.3 mEq/L (5-15); Aspartate Amino Transferase 39 U/L (14-36); Bilirubin,Total 0.7 mg/dl (0.2-1.3); Blood Urea Nitrogen 13 mg/dl (7-17); Calcium 9.4 mg/dl (8.4-10.2); Carbon Dioxide 26 mmol/L (22.0-30.0); Chloride 105 mmol/L (98-107); Estimated Glomerular Filt Rate 117 ml/min (>60); GFR (African American) 141 ML/MIN (>60); Globulin 3.1 g/dL (1.3-3.2); Glucose 101 mg/dl (74-100); Potassium 5.3 mmoL/L (3.5-5.1); Sodium 140 mmol/L (136-145); Total Protein,Serum 7.8 g/dl (6.3-8.2)
[2021-11-30 15:57] LABS: 25-OH Vitamin D, Total 26.4 ng/mL (30-100)
[2021-11-30 16:01] LABS: HCG Qualitative, Serum Negative (Negative)
[2021-11-30 16:10] LABS: Thyroid Stimulating Hormone 4.78 uIU/mL (0.465-4.68)
[2021-11-30 20:05] LABS: Occult Blood,Stool Negative (Negative)
[2021-11-30 23:23] LABS: Clostridium Difficile A/B, PCR Detected (NotDetected)
[2021-12-02 08:15] LABS: HIV Screen 4th Generation wRfx Non Reactive (Non Reactive)
[2021-12-02 09:36] LABS: Hep A Ab, IgM Negative (Negative); Hepatitis B Core Antibody IgM Negative (Negative); Hepatitis B Surface Antigen Negative (Negative); Hepatitis C Antibody 0.1 s/co ratio (0.0-0.9)
== END ==
PROVIDERS: Visit Provider Physician Assistant
DX: R10.11 Right upper quadrant pain (principal); R19.7 Diarrhea, unspecified; Z20.5 Contact with and (suspected) exposure to viral hepatitis; Z11.4 Encounter for screening for human immunodeficiency virus [HIV]; A04.72 Enterocolitis due to Clostridium difficile, not specified as recurrent
CPT/HCPCS: 80053; 80074; 82272; 82306; 84443; 84703; 86703; 87507; 87522; G0328; G0432

== ENCOUNTER → 2021-12-15 08:21 | Outpatient (CLI) | payer OTHER, SELFPAY ==
--- NOTE | 2021-12-15 08:22 | US_ITS ---
FINAL REPORT CLINICAL HISTORY: hepatomegaly COMPARISON: CT from the same day FINDINGS: ABDOMINAL ULTRASOUND COMPLETE: TECHNIQUE: Ultrasound images of the abdomen were obtained. FINDINGS: The liver is fatty infiltrated. There is mild hepatomegaly. The gallbladder contains minimal sludge. The common duct is normal. The right kidney measures 10.8 cm in length and is normal in echogenicity without hydronephrosis. The left kidney measures 11.6 cm in length and is normal in echogenicity without hydronephrosis. The spleen is unremarkable. The aorta is normal in caliber. The vena cava is unremarkable. IMPRESSION: Mild hepatomegaly with fatty infiltration of the liver. Minimal sludge in the gallbladder. Reviewed, Interpreted and Dictated by Shorty Avila MD Transcribed by Jameel Bruce Authenticated by Shorty Avila MD on 12/15/2021 11:17:20 AM [facility]
--- NOTE | 2021-12-15 08:23 | CT_ITS ---
FINAL REPORT TECHNIQUE: Axial images through the abdomen and pelvis were performed without contrast. This study was performed with techniques to keep radiation doses as low as reasonably achievable, (ALARA). Individualized dose reduction techniques using automated exposure control or adjustment of mA and/or kV according to the patient's size were employed. CLINICAL HISTORY: RUQ pain, hepatomegaly, diarrhea COMPARISON: June 02, 2018 FINDINGS: Abdomen: The lung bases are clear. There is moderate fatty infiltration of the liver. The gallbladder is present.. The spleen, pancreas, adrenals and kidneys are unremarkable. There is an ovoid fat attenuation focus measuring 11 x 8 mm in the proximal small bowel. It is unclear if this is ingested material or a small mucosal lesion. Pelvis: The urinary bladder is unremarkable. The appendix is normal. There is no pelvic mass or inflammation. IMPRESSION: 11 mm fat attenuation focus in the proximal small bowel. Findings could represent a lipoma. Reviewed, Interpreted and Dictated by Shorty Avila MD Transcribed by Jameel Bruce Authenticated by Shorty Avila MD on 12/15/2021 09:25:47 AM [facility]
== END ==
PROVIDERS: PCP Physician Assistant; Visit Provider Physician Assistant
DX: R10.11 Right upper quadrant pain (principal); R16.0 Hepatomegaly, not elsewhere classified
CPT/HCPCS: 74176; 76700